=== PATIENT | female | born 1995 | race Caucasian/White ===

== ENCOUNTER → 2017-11-10 17:21 | Outpatient (CLI) | payer OTHER, SELFPAY ==
[2017-11-10 18:56] LABS: Free T3, Triiodothyronine Free 2.71 pg/mL (2.77-5.27); Free T4, Direct Thyroxine 0.57 ng/dL (0.78-2.19)
== END ==
PROVIDERS: PCP Family Medicine; Visit Provider Family Medicine
DX: E89.0 Postprocedural hypothyroidism (principal); Z86.19 Personal history of other infectious and parasitic diseases
CPT/HCPCS: 36415; 84439; 84443; 84481

== ENCOUNTER → 2017-11-20 15:42 | Outpatient (CLI) | payer OTHER, SELFPAY ==
[2017-11-20 16:36] LABS: Pregnancy Test Serum,Qual Negative (Negative)
== END ==
PROVIDERS: PCP Family Medicine; Visit Provider Family Medicine
DX: N92.6 Irregular menstruation, unspecified (principal)
CPT/HCPCS: 36415; 84703

== ENCOUNTER → 2017-11-24 07:33 | Outpatient (CLI) | payer OTHER, SELFPAY ==
[2017-11-24 08:39] LABS: Add Manual Diff / Slide Review NO; Basophils Percent Auto 0.8 % (0-2); Eosinophils Percent Auto 3.3 % (2-4); Hematocrit 35.8 % (36-46); Hemoglobin 12.3 g/dL (12.0-16.0); Lymphocytes Percent Auto 22.3 % (25-40); Mean Corpuscular HGB Conc 34.2 % (30-36); Mean Corpuscular Hemoglobin 28.3 PG (26-34); Mean Corpuscular Volume 82.9 fL (80-100); Monocytes Percent Auto 6.7 % (3-14); Neutrophils Absolute Auto 5800 /uL (3000-5900); Neutrophils Percent Auto 66.9 % (50-75); Platelet Count 254 X10^3/uL (150-400); Red Blood Cell Count 4.33 X10^6/uL (4.0-5.2); Red Cell Distribution Width 14.3 % (11.6-14.8); White Blood Cell Count 8.7 X10^3/uL (4.5-11.0)
[2017-11-24 08:53] LABS: Alanine Aminotransferase 28 IU/L (9-52); Albumin 4.3 g/dL (3.5-5.0); Albumin Globulin Ratio 1.5 (1.0-2.8); Alkaline Phosphatase 65 U/L (38-126); Aspartate Aminotransferase 22 IU/L (14-36); BUN Creatinine Ratio 17.1 (6-22); Bilirubin Total 0.6 mg/dL (0.2-1.3); Blood Urea Nitrogen 12 mg/dL (7-17); Calcium 9.6 mg/dL (8.4-10.2); Carbon Dioxide 28 mmol/L (22-32); Chloride 99 mmol/L (98-107); Cholesterol 149 mg/dL (140-199); Estimated Glomerular Filt Rate > 60.0 mL/min (>60); Globulin 2.8 g/dL (1.7-4.1); Glucose 91 mg/dL (70-100); HDL Cholesterol 46 mg/dL (40-60); HEMOLYSIS < 15 (0-50); LDL Cholesterol Calculated 82 mg/dL (<100); Potassium 4.1 mmol/L (3.4-5.1); Sodium 139 mmol/L (137-145); Total Protein 7.1 g/dL (6.3-8.2); Triglycerides 103 mg/dL (35-150)
[2017-11-24 08:55] LABS: Hemoglobin A1C% w Est Avg Glu 5.5 % (4.0-6.0)
[2017-11-24 09:17] LABS: Cortisol AM (Before 10AM) 9.12 ug/dL (4.46-22.7)
== END ==
PROVIDERS: PCP Family Medicine; Visit Provider Family Medicine
DX: M25.50 Pain in unspecified joint (principal); R63.5 Abnormal weight gain; E66.9 Obesity, unspecified; R14.0 Abdominal distension (gaseous)
CPT/HCPCS: 36415; 80053; 80061; 82533; 83036; 83516; 85025; 86140

== ENCOUNTER → 2018-01-28 13:24 | Outpatient (CLI) | payer OTHER, SELFPAY ==
[2018-01-28 14:48] LABS: Free T3, Triiodothyronine Free 2.33 pg/mL (2.77-5.27); Free T4, Direct Thyroxine 0.67 ng/dL (0.78-2.19)
== END ==
PROVIDERS: PCP Family Medicine; Visit Provider Family Medicine
DX: E89.0 Postprocedural hypothyroidism (principal)
CPT/HCPCS: 36415; 84439; 84443; 84481

== ENCOUNTER → 2018-04-05 15:39 | Outpatient (CLI) | payer OTHER, SELFPAY ==
[2018-04-05 16:16] LABS: Influenza A and B by PCR Rapid Negative (Negative)
== END ==
PROVIDERS: PCP Family Medicine; Visit Provider Internal Medicine
DX: R50.9 Fever, unspecified (principal)
CPT/HCPCS: 87400

== ENCOUNTER → 2018-04-19 11:00 | Outpatient (CLI) | payer OTHER, SELFPAY | PROVIDERS: PCP Family Medicine | DX: Z23 Encounter for immunization (principal) | CPT/HCPCS: 90471; 90686 ==

== ENCOUNTER → 2018-05-17 14:00 | Outpatient (CLI) | payer OTHER, SELFPAY ==
[2018-05-17 15:05] LABS: HCG Quantitative /Beta subunit < 2.39 mIU/mL
== END ==
PROVIDERS: PCP Family Medicine
DX: N91.2 Amenorrhea, unspecified (principal)
CPT/HCPCS: 36415; 84702

== ENCOUNTER → 2018-10-01 07:48 | Outpatient (CLI) | payer OTHER, SELFPAY ==
[2018-10-01 09:04] LABS: Add Manual Diff / Slide Review NO; Basophils Absolute Auto 100 /uL (0-100); Basophils Percent Auto 1.1 % (0-2); Eosinophils Absolute Auto 300 /uL (0-450); Eosinophils Percent Auto 3.2 % (2-4); Hematocrit 34.5 % (36-46); Hemoglobin 11.6 g/dL (12.0-16.0); Lymphocytes Absolute Auto 2000 /uL (1100-4500); Lymphocytes Percent Auto 21.6 % (25-40); Mean Corpuscular HGB Conc 33.6 % (30-36); Mean Corpuscular Volume 86.5 fL (80-100); Monocytes Absolute Auto 400 /uL (0-900); Monocytes Percent Auto 4.2 % (3-14); Neutrophils Absolute Auto 6500 /uL (1500-7000); Neutrophils Percent Auto 69.9 % (50-75); Platelet Count 267 X10^3/uL (150-400); Red Blood Cell Count 3.99 X10^6/uL (4.0-5.2); Red Cell Distribution Width 14.9 % (11.6-14.8); White Blood Cell Count 9.3 X10^3/uL (4.5-11.0)
[2018-10-01 09:20] LABS: Alanine Aminotransferase 21 IU/L (9-52); Albumin 4.4 g/dL (3.5-5.0); Albumin Globulin Ratio 1.4 (1.0-2.8); Alkaline Phosphatase 74 U/L (38-126); Aspartate Aminotransferase 23 IU/L (14-36); BUN Creatinine Ratio 14.4 (6-22); Bilirubin Total 0.3 mg/dL (0.2-1.3); Blood Urea Nitrogen 13 mg/dL (7-17); Calcium 9.2 mg/dL (8.4-10.2); Carbon Dioxide 26 mmol/L (22-32); Chloride 102 mmol/L (98-107); Estimated Glomerular Filt Rate > 60.0 mL/min (>60); Globulin 3.1 g/dL (1.7-4.1); Glucose 90 mg/dL (70-100); HEMOLYSIS < 15 (0-50); Potassium 4.1 mmol/L (3.4-5.1); Sodium 138 mmol/L (137-145); Total Protein 7.5 g/dL (6.3-8.2)
[2018-10-01 09:49] LABS: Ferritin 12.5 ng/mL (6.27-137)
[2018-10-01 10:13] LABS: HEMOLYSIS < 15 (0-50); Iron 59 ug/dL (37-170)
[2018-10-01 10:25] LABS: Percent Iron Saturation 16 % (15-50); Total Iron Binding Capacity 368 ug/dL (265-497); Transferrin 273 mg/dL (206-381)
[2018-10-01 10:29] LABS: Vitamin D 25 Hydroxy (D3) 26.7 ng/mL (30.0-100.0)
[2018-10-01 10:31] LABS: Free T4, Direct Thyroxine 0.24 ng/dL (0.78-2.19)
[2018-10-05 12:50] LABS: Triiodothyronine T3 Reverse 7 ng/dL (8-25)
[2018-10-05 15:30] LABS: Thyroid Peroxidase Antibodies < 1 IU/mL (< 9)
[2018-10-05 15:46] LABS: Dehydroepiandrosterone Sulfate 117 mcg/dL (18-391); Insulin Level Total 6.7 uIU/mL (2.0-19.6)
[2018-10-06 11:51] LABS: Homocysteine 12.1 umol/L (< 10.4)
== END ==
PROVIDERS: PCP Family Medicine; Visit Provider Family Medicine
DX: E89.0 Postprocedural hypothyroidism (principal); R63.5 Abnormal weight gain; E66.9 Obesity, unspecified; N92.0 Excessive and frequent menstruation with regular cycle; Z77.011 Contact with and (suspected) exposure to lead
CPT/HCPCS: 36415; 80053; 82306; 82627; 82728; 83090; 83525; 83540; 83550; 83655; 84439; 84443; 84481; 84482; 85025; 86376

== ENCOUNTER → 2019-04-20 13:20 | Outpatient (CLI) | payer OTHER, SELFPAY ==
[2019-04-20 14:05] LABS: Add Manual Diff / Slide Review NO; Basophils Absolute Auto 200 /uL (0-100); Basophils Percent Auto 2.3 % (0-2); Eosinophils Absolute Auto 200 /uL (0-450); Eosinophils Percent Auto 2.3 % (2-4); Hematocrit 34.6 % (36-46); Hemoglobin 11.6 g/dL (12.0-16.0); Lymphocytes Absolute Auto 1900 /uL (1100-4500); Mean Corpuscular HGB Conc 33.6 % (30-36); Mean Corpuscular Hemoglobin 28.8 PG (26-34); Mean Corpuscular Volume 85.7 fL (80-100); Monocytes Absolute Auto 300 /uL (0-900); Monocytes Percent Auto 3.1 % (3-14); Neutrophils Absolute Auto 7200 /uL (1500-7000); Neutrophils Percent Auto 73.3 % (50-75); Platelet Count 266 X10^3/uL (150-400); Red Blood Cell Count 4.04 X10^6/uL (4.0-5.2); Red Cell Distribution Width 15.2 % (11.6-14.8); White Blood Cell Count 9.8 X10^3/uL (4.5-11.0)
[2019-04-20 14:34] LABS: HEMOLYSIS < 15 (0-50); Iron 44 ug/dL (37-170)
[2019-04-20 14:35] LABS: Alanine Aminotransferase 23 IU/L (9-52); Albumin 4.7 g/dL (3.5-5.0); Albumin Globulin Ratio 1.7 (1.0-2.8); Alkaline Phosphatase 92 U/L (38-126); Aspartate Aminotransferase 22 IU/L (14-36); BUN Creatinine Ratio 15.7 (6-22); Bilirubin Total 0.4 mg/dL (0.2-1.3); Blood Urea Nitrogen 11 mg/dL (7-17); Calcium 9.4 mg/dL (8.4-10.2); Carbon Dioxide 26 mmol/L (22-32); Chloride 102 mmol/L (98-107); Cholesterol 172 mg/dL (140-199); Estimated Glomerular Filt Rate > 60.0 mL/min (>60); Globulin 2.7 g/dL (1.7-4.1); Glucose 90 mg/dL (70-100); HDL Cholesterol 36 mg/dL (40-60); HEMOLYSIS < 15 (0-50); LDL Cholesterol Calculated 101 mg/dL (<100); Potassium 4.1 mmol/L (3.4-5.1); Sodium 138 mmol/L (137-145); Total Protein 7.4 g/dL (6.3-8.2); Triglycerides 177 mg/dL (35-150)
[2019-04-20 14:44] LABS: Percent Iron Saturation 11 % (15-50); Total Iron Binding Capacity 385 ug/dL (265-497); Transferrin 307 mg/dL (206-381)
[2019-04-20 14:51] LABS: Free T3, Triiodothyronine Free 2.04 pg/mL (2.77-5.27); Free T4, Direct Thyroxine 0.49 ng/dL (0.78-2.19)
[2019-04-20 15:09] LABS: Ferritin 12.5 ng/mL (6.27-137)
== END ==
PROVIDERS: PCP Family Medicine; Visit Provider Family Medicine
DX: D50.9 Iron deficiency anemia, unspecified (principal); E89.0 Postprocedural hypothyroidism; E66.9 Obesity, unspecified
CPT/HCPCS: 36415; 80053; 80061; 82728; 83540; 83550; 84439; 84443; 84481; 85025

== ENCOUNTER → 2019-06-01 13:08 | Outpatient (CLI) | payer OTHER, SELFPAY ==
[2019-06-01 14:37] LABS: HCG Quantitative /Beta subunit < 2.39 mIU/mL
== END ==
PROVIDERS: PCP Specialist; Visit Provider Specialist
DX: N91.2 Amenorrhea, unspecified (principal)
CPT/HCPCS: 36415; 84702

== ENCOUNTER 2019-06-10 06:27 | Day surgery (SDC) | payer OTHER, SELFPAY ==
[2019-06-08 14:12] VITALS: BMI 44.2
[2019-06-10] VITALS (9 sets, daily range): BP systolic 110–147; BP diastolic 57–81; PULSE 65–81; RESP 12–17; TEMP 36.2–37.2; O2SAT 96–100; BMI 44.0
[2019-06-10] MEDS: LACTATED RINGERS 1,000 ML 100 ML IV (07:16)
--- NOTE | 2019-06-10 07:42 | PM.PREOP ---
Pre-operative Note Interval Note History & Physical reviewed/Exam performed by Physician: Yes Changes to H&P: No
--- NOTE | 2019-06-10 07:42 | PM.OP.1 ---
Operative Date/Time/Diagnoses Date of procedure: 06/10/19 Time of procedure: 07:42 Pre-op diagnosis: Right plantar fasciitis Post-op diagnosis: same Procedure & Clinicians Procedure: Right endoscopic plantar fascial release Same procedure as scheduled: Yes Indications: Painful right foot plantar fasciitis. Conservative measures failed to alleviate the pain and the desire was to have surgery at this time. We spoke of the risks, potential complications, alternatives, as well as expected outcomes. Consent was signed, no contraindications to the procedure at this time. Surgeon: Vijaya Howard Click Yes if Unassisted: Yes Anesthesia Type: General Operative Notes Closure Type: primary Specimen(s): none sent Estimated Blood Loss (mL): 3 Blood products transfused: none Tourniquet time (min): 24 Procedure in detail: The patient was brought to the operating room and placed on the operating table in supine position. Following induction of general anesthesia, local anesthesia was attained the right patient's heel. It was then prepped and draped in usual aseptic manner. After verification of anesthesia the tourniquet was inflated to the ankle. An incision was made over the medial heel just distal to the medial calcaneal tubercle. After blunt dissection to the origin point of the medial fascial band, a fascial elevator was used to gently remove some of the fat from the fascial band. Once more fully isolated, the trochar and obturator were placed in the incision from medial to lateral. An incision was made laterally to allow it's exit. The canal was cleaned using cotton tipped applicators to allow better visualization. The arthroscope was inserted laterally and a probe medially. Pictures were taken of the fascia then the probe was replaced with a blade. While dorsiflexing the forefoot, approximately half of the plantar fascia was transected from the central to medial aspect. Underlying this was seen the muscle. I removed the trochar and gently replaced it slightly more plantar on the medial aspect as this allowed for the final medial portion of the band to be released. Pictures taken. System rotated plantarly to verify that all fibers of the plantar fascia on that side had been released. The area was irrigated with copious amounts of normal saline. The system was then removed. The skin was closed both incisions with 4-0 nylon. After the tourniquet was deflated, a prompt hyperemic response was seen to the foot. The incisions were dressed with a sterile lightly compressive dressing and a postsurgical boot. The patient was transferred to the PACU with vital signs stable and vascular status intact. Complications: none Post-operative Condition: stable Disposition: PACU Plan for aftercare: Following a period of postoperative monitoring, the patient will be discharged to home on written and oral postoperative instructions. She has a set of crutches and a scooter option if needed for her nonweightbearing status. She has been directed to partial weight-bearing on the surgical foot for approximately 10 days, then she is available to begin transition to weight-bearing as tolerated following that in the boot, then may transition into a supportive shoe. Her sutures are generally to be removed status post approximately 1-2 weeks, but this is at the discretion of the provider. She must wear her boot while sleeping or a night splint for her full 3 weeks following the day of surgery. She is seeing for her 1st postoperative visit 1 of our physician's assistants and suture removal will be at his discretion, and may be performed or delayed until her following week visit with myself.
[2019-06-10] MEDS: CEFAZOLIN 2 GM/100 ML FROZ.PIGGY IV (07:45)
--- NOTE | 2019-06-10 08:13 | SUR.OPER ---
Supine on padded OR bed, head on pillow, arms secured on padded arm boards at <90 degrees abduction, legs uncrossed, safety belt at waist, tape over blanket over lower left leg, bump under right thigh, right leg draped free
[2019-06-10] MEDS: BUPIVACAINE 0.5% (PF) VIAL 30 ML INJ (08:20)
[2019-06-10] MEDS: fentaNYL 100 MCG/2 ML INJ IV ×2 (09:01→09:12)
[2019-06-10] MEDS: CODEINE/ACETAMINOPHEN 30/300 TABLET 1 TAB PO (09:23)
--- NOTE | 2019-06-10 09:41 | SUR.PHASEI ---
Stable pacu stay, shakes resolved with bare hugger and pain controlled with fentanyl and tylenol #3.
--- NOTE | 2019-06-10 10:17 | SUR.PHASEII ---
Assisted patient to bathroom. Patient discharged with in stable condition. All belongings returned to patient.
== END 2019-06-10 10:15 | disposition home or self-care (01) ==
PROVIDERS: PCP Family Medicine; Visit Provider Podiatrist
PROC: (CPT 29893; principal; 2019-06-10 07:45)
DX: M72.2 Plantar fascial fibromatosis (principal); E03.9 Hypothyroidism, unspecified; E66.9 Obesity, unspecified; Z68.41 Body mass index [BMI] 40.0-44.9, adult
CPT/HCPCS: 29893; J0690; J1100; J2250; J2405; J2704; J3010

== ENCOUNTER → 2019-07-29 11:10 | Outpatient (CLI) | payer OTHER, SELFPAY ==
[2019-07-29 13:25] LABS: Free T3, Triiodothyronine Free > 22.80 pg/mL (2.77-5.27); Free T4, Direct Thyroxine 5.89 ng/dL (0.78-2.19)
[2019-07-29 13:35] LABS: HCG Quantitative /Beta subunit < 2.39 mIU/mL
[2019-07-29 13:38] LABS: Thyroid Stimulating Hormone 0.02 uIU/mL (0.47-4.68)
== END ==
PROVIDERS: PCP Family Medicine; Referring Provider Family Medicine; Visit Provider Family Medicine
DX: E89.0 Postprocedural hypothyroidism (principal); N92.6 Irregular menstruation, unspecified
CPT/HCPCS: 36415; 84439; 84443; 84481; 84702

== ENCOUNTER → 2019-08-23 06:51 | Outpatient (CLI) | payer OTHER, SELFPAY ==
--- NOTE | 2019-08-23 | DI.MRI.S_ITS ---
PROCEDURE: MR ANKLE RT WO CON INDICATIONS: Plantar fascial fibromatosis TECHNIQUE: Noncontrast sagittal T1 spin echo and T2 fast spin echo with fat saturation, axial proton density fast spin echo and T2 fast spin echo with fat saturation, coronal T1 spin echo and T2 fast spin echo with fat saturation through the ankle/hindfoot. COMPARISON: [facility] [place], [place], XR FOOT 3+ VIEWS RIGHT, 05/04/2019, 11:28. FINDINGS: Image quality: Diagnostic. Bones and joints: No acute fracture, dislocation, or suspicious osseous lesion is identified involving the osseous structures of the midfoot or hindfoot. The ankle mortise alignment is anatomic. No osteochondral defects are present involving the tibial plafond toward the talar dome. There appear to be mild degenerative changes involving the middle and posterior subtalar joints. Mild degenerative cystic changes are noted involving the anterior process of the calcaneus near the sinus tarsi. There may be early degenerative changes of the calcaneocuboid joint. No significant joint effusions are identified. Medial structures: The deltoid and spring ligaments are intact. The tibialis posterior, flexor digitorum longus, and flexor hallucis longus tendons are intact and within normal limits. A small amount of fluid is contained within the tibialis posterior tendon sheath. There is mild subcutaneous edema about the medial aspect of the ankle. Incidental note is made of an flexor digitorum accessorius longus muscle, which is an anatomic variant. The posterior tibial nerve to the region of the tarsal tunnel appears to be within normal limits. Lateral structures: The anterior and posterior distal tibiofibular ligaments are intact. The anterior posterior talofibular ligaments are intact. The calcaneofibular ligament also appears to be intact. The peroneus brevis and peroneus longus tendons are intact. There is mild flattening involving the peroneus brevis tendon along the posterior margin of the lateral malleolus with slight increased signal involving the tendon just below the tip of the lateral malleolus. There is mild thickening and increased signal involving the peroneus longus tendon beyond the tip of the lateral malleolus. No significant tearing is present. A small amount of fluid is contained within their corresponding tendon sheaths. There is mild peritendinous edema. There is slight increased signal evident within the region of the sinus tarsi. Anterior structures: The tibialis anterior, extensor hallucis longus, and extensor digitorum longus tendons appear intact. However, there is slight increased signal identified involving the distal aspect of the tibialis anterior tendon near its insertion. Posterior and plantar structures: Achilles tendon is intact. Focal thickening involving the midportion of the medial band of the plantar fascia is present measuring up to 5 mm and demonstrating diffuse increased signal at this location with mild edema identified within the adjacent soft tissues. No complete tear is identified. IMPRESSION: 1. Thickening and abnormal signal involving the medial band of the plantar fascia may represent fasciitis versus plantar fibromatosis. Please correlate clinically. 2. Mild peroneus brevis and peroneus longus tendinopathy. 3. Mild tenosynovitis involving the tibialis posterior. 4. Mild distal anterior tibialis tendinopathy. 5. Mild degenerative changes of the hindfoot joints, as described. 6. Nonspecific increased signal within the sinus tarsi. Please correlate clinically to exclude sinus tarsi syndrome. Dictated by: Jalen Calderon M.D. on 08/23/2019 at 8:46 Approved by: Jalen Calderon M.D. on 08/23/2019 at 8:53
== END ==
PROVIDERS: PCP Family Medicine; Referring Provider Podiatrist; Visit Provider Podiatrist
DX: M72.2 Plantar fascial fibromatosis (principal); M65.871 Other synovitis and tenosynovitis, right ankle and foot
CPT/HCPCS: 73721

== ENCOUNTER → 2023-10-06 07:18 | Outpatient (CLI) | payer OTHER, SELFPAY ==
[2023-10-06 07:56] LABS: Add Manual Diff / Slide Review NO; Basophils Absolute Auto 100 /uL (0-100); Basophils Percent Auto 0.7 % (0-2); Eosinophils Absolute Auto 300 /uL (0-450); Eosinophils Percent Auto 2.6 % (2-4); Hematocrit 28.5 % (36-46); Hemoglobin 9.3 g/dL (12.0-16.0); Lymphocytes Absolute Auto 1900 /uL (1100-4500); Lymphocytes Percent Auto 18.4 % (25-40); Mean Corpuscular HGB Conc 32.7 % (30-36); Mean Corpuscular Hemoglobin 24.4 PG (26-34); Mean Corpuscular Volume 74.7 fL (80-100); Monocytes Absolute Auto 500 /uL (0-900); Monocytes Percent Auto 4.7 % (3-14); Neutrophils Absolute Auto 7700 /uL (1500-7000); Neutrophils Percent Auto 73.6 % (50-75); Platelet Count 360 X10^3/uL (150-400); Red Blood Cell Count 3.82 X10^6/uL (4.0-5.2); Red Cell Distribution Width 18.7 % (11.6-14.8); White Blood Cell Count 10.4 X10^3/uL (4.5-11.0)
[2023-10-06 08:31] LABS: Free T3, Triiodothyronine Free 2.58 pg/mL (2.77-5.27); Free T4, Direct Thyroxine 0.78 ng/dL (0.78-2.19)
[2023-10-06 08:44] LABS: Thyroid Stimulating Hormone 30.9 uIU/mL (0.47-4.68)
== END ==
PROVIDERS: Referring Provider Specialist; Visit Provider Specialist
DX: Z01.818 Encounter for other preprocedural examination (principal); E06.3 Autoimmune thyroiditis; N92.1 Excessive and frequent menstruation with irregular cycle; N80.03 Adenomyosis of the uterus
CPT/HCPCS: 36415; 84439; 84443; 84481; 85025

== ENCOUNTER 2023-10-12 06:41 | Day surgery (SDC) | payer OTHER, SELFPAY ==
[2023-10-05 12:14] VITALS: BMI 50.5
[2023-10-12] VITALS (19 sets, daily range): BP systolic 93–151; BP diastolic 41–75; PULSE 63–80; RESP 11–19; TEMP 36.3–37.2; O2SAT 93–100; BMI 49.4
--- NOTE | 2023-10-12 | PATH_ITS ---
[facility] Accession Number: [id number] No. of containers..01 Tissue . 01 Material submitted: . uterus - UTERUS, BILATERAL FALLOPIAN TUBES . 01 Diagnosis: UTERUS AND LEFT AND RIGHT FALLOPIAN TUBES, SUPRACERVICAL HYSTERECTOMY AND BILATERAL SALPINGECTOMY: Endometrium: Disordered proliferative with focal breakdown. Myometrium: No significant pathologic abnormalities. Serosa: No significant pathologic abnormalities. Fallopian tubes: Benign paratubal cysts, bilateral, and rare focus of endometriosis. [facility] 10/16/2023 1659 Local . 01 Electronically signed: . Olivia Hills MD, Pathologist NPI- [id number] . 01 Gross description: . Received in formalin with two identifiers and uterus and bilateral fallopian tubes, is a fragmented uterus (72 grams, 11.2 x 5.6 x 3.5 cm in aggregate), with two detached, unoriented, fimbriated fallopian tubes (4.9 x 0.9 cm and 5.7 x 0.6 cm), with no cervix or additional adnexa identified. . The serosa is quinn and wrinkled with several small dusky areas measuring up to 0.7 cm in greatest dimension. The endometrium is quinn and velvety and averages 0.1 cm. The myometrium is quinn and trabecular with no nodules or lesions identified. . The longer tube has violaceous serosa with adherent areas of hemorrhagic material and a cyst measuring up to 1.6 cm in greatest dimension filled with quinn serous fluid. The lumen is stellate and unremarkable. The shorter tube has quinn smooth serosa with a hemorrhagic area measuring 0.4 cm in greatest dimension and a cyst measuring 1.0 cm in greatest dimension filled with quinn serous fluid. The lumen is stellate and unremarkable. . [employer] sections are submitted as follows: A1: Endometrium. A2: Trabecular myometrium. A3: Serosa with hemorrhagic areas. A4: Longer fallopian tube to include one-half of bisected fimbriae and corss-sections. A5: Marcellus fallopian tube to include one-half of bisected fimbriae and cross-sections. ([id number]) /MUNIR 10/16/2023 1706 Local . 01 Pathologist provided ICD-10: N92.0, N80.01 . 01 CPT . 568702 Performed at: 01 [facility] [address] [place] [address], [place], [place] [id number] MD Rob Isaacs MD Phone: [phone]
[2023-10-12] MEDS: LACTATED RINGERS 1,000 ML 21 ML IV ×2 (07:27→10:22)
[2023-10-12] MEDS: ACETAMINOPHEN IV 1,000 MG/100 ML VIAL 400 MG IV (07:27)
--- NOTE | 2023-10-12 07:27 | PM.PREOP ---
Pre-operative Note Interval Note History & Physical reviewed/Exam performed by Physician: Yes Changes to H&P: No
[2023-10-12] MEDS: SCOPOLAMINE 1 PATCH TOP (07:28)
[2023-10-12] MEDS: CEFAZOLIN VIAL 3 GM in SODIUM CHLORIDE 0.9% 100 ML IV (07:55)
--- NOTE | 2023-10-12 08:14 | SUR.OPER ---
Lithotomy on padded OR bed. Switzer Pad Positioner under torso. Head on pillow, arms padded and tucked at sides. Legs secured in padded yellow fins stirrups.
[2023-10-12] MEDS: BUPIVACAINE 0.5% (PF) 30 ML, EPINEPHrine 0.15 MG INJ (08:25)
--- NOTE | 2023-10-12 09:58 | P.OP_ITS ---
Operative Date/Time/Diagnoses Date of procedure: 10/12/23 Time of procedure: 09:59 Pre-op diagnosis: Menorrhagia, history endometriosis on laparoscopy Post-op diagnosis: same (No endometriosis found) Procedure & Clinicians Procedure: Laparoscopic supracervical hysterectomy with bilateral salpingectomies Same procedure as scheduled: Yes Surgeon: Domonique Maxwell Chief Investment Officer: Faiza Suarez Click Yes if Unassisted: No Anesthesia Type: General Operative Notes Findings: Normal exam under anesthesia. Normal liver edge. Normal appearing uterus, tubes, ovaries. No active endometriosis seen. Closure Type: primary Specimen(s): other (Bilateral fallopian tubes and uterus not including the cervix) Applied: catheter (Clark catheter removed at the end of the case) Estimated Blood Loss (mL): 20 Blood products transfused: none Procedure in detail: Patient is brought to the operating room where she underwent general anesthesia and placed in low [facility] stirrups. She was prepped and draped in the usual sterile fashion. A check list was reviewed with the staff in the room prior to beginning of the case. Patient had pulsatile stockings in place and functional. 3 g of Ancef were in prior to beginning of the case.. A Clark catheter was placed. A single-tooth tenaculum was placed on the anterior lip of the cervix and the cervix dilated to a #6 Hegar dilator. The uterine manipulator was placed through the cervix into the uterus with the balloon inflated with 3 mL of air. The area of the umbilical incision and the 5 mm right and left lower quadrant incisions were injected with Marcaine with epinephrine. An incision was made with scalpel. The verries needle was placed into the abdomen and confirmed in the appropriate place with withdrawal on a syringe and then free flow of fluid down through the needle. The abdomen was insufflated with CO2. The needle was removed and a 5 mm trocar placed without difficulty. There did not appear to be any damage is placement of the trocar. The right and left lower quadrant incisions were made with the scalpel and the trochars placed without damage to internal structures. The power seal forceps were used to cauterize sequential bites were taken along the mesosalpinx followed by the round ligaments on both sides. The tubes were amputated and brought up through the port. During the sequence decision was made to place the suprapubic site to allow a another trocar to help expose the uterus. The skin was injected with Marcaine with epinephrine. An incision was made with the scalpel. The port was placed under direct visualization. Sequential bites were taken down the broad ligaments. The uterine arteries were cauterized. An incision was made above the level bladder pushing the bladder away from the cervix. The COMFORT loop was placed around the uterus and the uterus was amputated above the level of the bladder. The monopolar spatula was used to cauterize in the endocervical canal. A 15 mm Endo Catch bag was placed in the abdomen through the suprapubic port. The uterus was placed in the bag and brought up through the suprapubic port site. The Tirso O was placed. The uterus was hand morselized. The abdomen was reinsufflated and adequate hemostasis was noted. Ropivacaine was placed over the incision sites. The trochars were removed and the CO2 allowed escape from the abdomen. The fascia layer of the suprapubic site was repaired with 0 Polysorb suture. The subcuticular tissue was closed with interrupted 3-0 Vicryl sutures. The skin was closed with 4-0 Monocryl suture at the suprapubic site and the other 3 sites. The patient went to recovery room in good condition. Counts of instruments and sponges were correct. Dr. Suarez was present throughout the case to assist with holding the camera, retracting, cauterizing and cutting the structures on the left side of the patient, as well as assisting with morselization of the uterus. Complications: none Post-operative Condition: stable Disposition: observation (To acute care for monitoring postoperative for bleeding, ability to ambulate postoperative) Plan for aftercare: Home when awake and stable in a.m. on 10/13/2023
[2023-10-12] MEDS: ONDANSETRON 4 MG/2 ML INJ IV (10:01)
[2023-10-12] MEDS: HYDROMORPHONE 1 MG INJ IV ×3 (10:02→10:21)
[2023-10-12] MEDS: LORazepam 2 MG/ML INJ 0.25 MG IV (10:09)
--- NOTE | 2023-10-12 10:31 | SUR.PHASEI ---
Dr Maxwell to bedside. See order for oxycodone. Discussed with patient and MD regarding gluten and dairy allergy. Pt states she has taken this medication previously.
--- NOTE | 2023-10-12 11:08 | SUR.PHASEI ---
Pt transferred to room 218 in bed by this RN with glasses on and 1 belongings bag. SBAR report with bedside handoff to Eric HANKINS.
--- NOTE | 2023-10-12 11:23 | PC.NURSE ---
Patient arrived to room 218 approx 1105 from PACU. Oriented to room and call light. VSS. 4 lap sites to abdomen with dressings intact without drainage or bleeding noted. Felicity pad in place, without drainage noted at this time. Patient's now at bedside. Call light within reach. Continue to monitor.
[2023-10-12] MEDS: OXYCODONE IR 5 MG TABLET PO ×3 (11:40→21:39)
[2023-10-12] MEDS: ACETAMINOPHEN 325 MG TABLET 650 MG PO ×3 (11:40→23:27)
[2023-10-12] MEDS: LACTATED RINGERS 1,000 ML 100 ML IV ×2 (11:40→21:39)
[2023-10-12 12:26] LABS: Estimated Glomerular Filt Rate > 60 mL/min (>60)
[2023-10-12] MEDS: KETOROLAC 30 MG/ML VIAL IV ×2 (16:32→23:27)
[2023-10-12] MEDS: DOCUSATE 100 MG CAPSULE 200 MG PO (21:39)
[2023-10-13] MEDS: OXYCODONE IR 5 MG TABLET PO ×2 (02:53→09:16)
[2023-10-13 05:08] LABS: Add Manual Diff / Slide Review NO; Basophils Absolute Auto 0 /uL (0-100); Basophils Percent Auto 0.3 % (0-2); Eosinophils Absolute Auto 0 /uL (0-450); Lymphocytes Absolute Auto 1400 /uL (1100-4500); Lymphocytes Percent Auto 8.9 % (25-40); Mean Corpuscular Hemoglobin 24.8 PG (26-34); Mean Corpuscular Volume 77.5 fL (80-100); Monocytes Absolute Auto 800 /uL (0-900); Monocytes Percent Auto 5.3 % (3-14); Neutrophils Absolute Auto 13100 /uL (1500-7000); Neutrophils Percent Auto 85.5 % (50-75); Platelet Count 317 X10^3/uL (150-400); Red Blood Cell Count 3.22 X10^6/uL (4.0-5.2); Red Cell Distribution Width 19.7 % (11.6-14.8); White Blood Cell Count 15.3 X10^3/uL (4.5-11.0)
[2023-10-13] MEDS: ACETAMINOPHEN 325 MG TABLET 650 MG PO (05:48)
[2023-10-13] MEDS: KETOROLAC 30 MG/ML VIAL IV (05:48)
[2023-10-13] MEDS: LACTATED RINGERS 1,000 ML 100 ML IV (05:59)
[2023-10-13 08:00] VITALS: BP 107/62; PULSE 73; RESP 16; TEMP 36.9; O2SAT 100
--- NOTE | 2023-10-13 08:31 | P.DS_ITS ---
History of Present Illness History of Present Illness Date Patient Seen: 10/13/23 Time Patient Seen: 08:32 Chief complaint: [facility] for menorrhagia Narrative: Postoperative laparoscopic supracervical hysterectomy with bilateral salpingectomy for menorrhagia Discharge Providers Provider Discharge Date: 10/13/23 Discharge provider: Domonique Maxwell MD Summary Hospital Course Discharge Diagnosis: Menorrhagia with chronic blood-loss anemia Hospital Course: Patient underwent a laparoscopic supracervical hysterectomy with bilateral salpingectomy for menorrhagia with chronic blood-loss anemia and history of endometriosis Status at Discharge Cognitive/behavioral status at discharge: oriented Functional status at discharge: independent ambulation Overall status at discharge: patient is progressing back to baseline Time Spent with Patient Time spent: Less than 30 minutes Exam Vital Signs (past 8 hours): Blood pressure 102/54, pulse of 83 Oxygen Delivery Method Room Air Oxygen Flow Rate 0 Narrative Exam Narrative: Patient's abdomen is soft, nontender. Dressings are clean, dry, intact. Extremities with out edema and nontender Objective Labs 10/13/23 04:52 10/12/23 12:05 Labs: Laboratory Results - last 24 hr 10/12/23 10/13/23 12:05 04:52 WBC 15.3 H RBC 3.22 L Hgb 8.0 L Hct 25.0 L MCV 77.5 L MCH 24.8 L MCHC 32.0 RDW 19.7 H Plt Count 317 Neut % (Auto) 85.5 H Lymph % (Auto) 8.9 L [place] % (Auto) 5.3 Eos % (Auto) 0.0 L Baso % (Auto) 0.3 Neut # (Auto) 17258 H Lymph # (Auto) 1400 [place] # (Auto) 800 Eos # (Auto) 0 Baso # (Auto) 0 Creatinine 0.70 Estimated GFR > 60 PFSH Medical History (Updated 10/13/23 @ 08:30 by Domonique Maxwell MD) Endometriosis determined by laparoscopy Preoperative exam for gynecologic surgery Plantar warts (~2009) Depression (~2011) Anxiety (~2011) Restless leg syndrome (~2011) Foot pain (~2009) Ankle pain (~2000) Chicken pox (~1997) Infertility (~2016) Heavy menstrual period Endometriosis (~2015) Abnormal Pap smear of cervix (~2013) Hyperthyroidism (~2009) Colon polyps (~2009) GERD (gastroesophageal reflux disease) IBS (irritable bowel syndrome) (~2005) Graves disease (~2009) Hypothyroidism (~2009) Surgical History (Updated 10/12/23 @ 09:51 by Domonique Maxwell MD) History of orthopedic surgery (06/10/19) Anesthesia Surgical procedure planned Maynard teeth removed H/O laparoscopy (~2015) History of tonsillectomy (~2006) Family History Grandfather Heart disease Grandmother Hypertension Social History marital status: household members: spouse occupational status: employed ([employer]) Smoking Status: Never smoker alcohol intake: never substance use type: does not use Discharge Assessment & Plan Assessment and Plan Assessment: Postop day 1 laparoscopic supracervical hysterectomy with bilateral salpingectomy. Patient is stable with abdominal pain that is gradually improving. She is able to ambulate. She is having gas discomfort. Plan of Treatment: Will give a dose of IV iron prior to discharge for chronic anemia. Patient has a telehealth appointment in 2 weeks and a follow-up appointment in 6 weeks. Precautions to return for infection, pain under control or other concerns. Discharge Plan Discharge Plan Patient Disposition: Home Discharge orders & Medications Discharge Orders: Discharge (Order); Ordered 10/13/23 Ordered By: Domonique Maxwell Prescriptions: New ibuprofen 600 mg Tablet 600 mg PO Q6H Qty: 20 0RF oxycodone 5 mg Tablet 5 mg PO Q4HR PRN (Reason: Pain, Moderate (4-6)) Qty: 20 0RF Continued liothyronine 50 mcg tablet 100 mcg PO DAILY levothyroxine 250mcg/liothyrinine 50mcg 400 mcg PO QAM Follow up/Referrals: Domonique Maxwell MD [Physician] - (patient has a scheduled TH appt 10/27 and a 6 week post op appointment) Diet/Activity/Treatments Diet: Regular Activity: nothing in vagina for 1 week. No other restrictions Skin/Wound/Dressing Care Report to your healthcare provider any signs of infection, such as:: chills, fever, increased pain, unusual drainage and unusual redness Dressing: remove bandaids 10/12, leave steri strips in place for 1 week., can get wet just pat dry. remove after 1 week Visit Report/Discharge Packet Instructions: DI for Hysterectomy, DI for Laparoscopy Stand Alone Forms: Patient Portal/API, Surgery Discharge Discharge Data Attending Provider: Domonique Maxwell
[2023-10-13] MEDS: IRON SUCROSE 200 MG in SODIUM CHLORIDE 0.9% 100 ML 220 MG IV (09:15)
[2023-10-13] MEDS: DOCUSATE 100 MG CAPSULE 200 MG PO (09:15)
--- NOTE | 2023-10-13 12:25 | CM.DPNOTE ---
DCP Continued Pt is a 28yo female, resident of [place], presenting s/p [facility] for menorrhagia. Reviewed EMR and team rounds for pt?s medical status. Per RN, pt had no identified discharge needs and discharged home with spouse. Pt discharged before DCP was able to complete assessment. BAKARI Kamara
--- NOTE | 2023-10-13 16:09 | PC.NURSE ---
Discharge Note Patient A&O, VSS, RA, no complaints of pain/discomfort. Discharge packet reviewed with patient, all questions/concerns addressed. PIV discontinued. Patient able to dress self and pack all belongings. Patient taken down via wheelchair to POV.
== END 2023-10-13 11:20 | disposition home or self-care (01) ==
LOC: OR 06:41 → AC 06:42
PROVIDERS: Referring Provider Specialist; Visit Provider Specialist
PROC: 0UT94ZL Resection of Uterus, Supracervical, Percutaneous Endoscopic Approach (ICD-10-PCS; CPT 58542; principal; 2023-10-12 07:45)
DX: N92.0 Excessive and frequent menstruation with regular cycle (principal); N92.1 Excessive and frequent menstruation with irregular cycle; N83.8 Other noninflammatory disorders of ovary, fallopian tube and broad ligament; N80.203 Endometriosis of bilateral fallopian tubes, unspecified depth
CPT/HCPCS: 58542; 36415; 82565; 85025; 86850; 86900; 86901; J0136; J0171; J0690; J1100; J1170; J1756; J1885; J2060; J2250; J2405; J2704; J3010; J3490

== ENCOUNTER 2023-11-14 23:18 | Emergency (ER) | payer OTHER, SELFPAY ==
[2023-10-12 11:43] VITALS: BMI 49.4
[2023-11-14 23:30] VITALS: BP 139/84; PULSE 76; RESP 18; TEMP 36.9; O2SAT 100; BMI 47.8
--- NOTE | 2023-11-14 23:38 | DI.RAD.S_ITS ---
PROCEDURE: XR KNEE RT 3V INDICATIONS: pain after fall TECHNIQUE: 3 views of the knee were acquired. COMPARISON: None. FINDINGS: Bones: No fractures or dislocations. No suspicious bony lesions. Soft tissues: No joint effusion. No suspicious soft tissue calcifications. IMPRESSION: No acute bony abnormality or significant effusion. Approved by: Trevor Evans M.D. on 11/14/2023 at 23:42
--- NOTE | 2023-11-14 23:38 | DI.RAD.S_ITS ---
PROCEDURE: XR SHOULDER RT MIN 2V INDICATIONS: pain after fall TECHNIQUE: 2 views of the shoulder were acquired. COMPARISON: None. FINDINGS: Bones: No fractures or dislocations. No suspicious bony lesions. Visualized ribs appear intact. Soft tissues: No suspicious soft tissue calcifications. IMPRESSION: No acute bony abnormality. Approved by: Trevor Evans M.D. on 11/14/2023 at 23:41
--- NOTE | 2023-11-15 01:38 | ED_ITS ---
HPI - General Adult General Chief complaint: Extremity Injury, Upper Stated complaint: 5 weeks post op hysterectomy, fall, shoulder pain Time Seen by Provider: 11/15/23 00:56 Source: patient Mode of arrival: Ambulatory Limitations: no limitations History of Present Illness HPI narrative: 28-year-old female with history of hypothyroidism, patient did have hysterectomy 5 weeks ago. Patient was hiking around [facility] on some trails it was washed out she slipped and fell onto her right side landing on her shoulder side and leg. She states she did hit her head although no loss of consciousness no severe headaches no vertebral neck or back pain. Patient states no new abdominal pain. No chest pain or shortness of breath. She has had some discomfort in his shoulder which has worsened since this occurred at 8:30 a.m. in the evening, she felt like there was an occasional click but she can take it through full range of motion. No new numbness tingling or weakness. She also has some discomfort in her leg particularly her knee but has been able to weightbear. Has not appreciated significant bruising or skin changes. She does have some abrasions which are superficial on her calf. She states her tetanus is up-to-date. She states levothyroxine as her only home medication, no anticoagulants. She has had prior laparotomy and recent hysterectomy 5 weeks ago, patient has had prior ankle surgery on the right. Patient denies tobacco, regular alcohol or recreational drugs. She defers anything for pain. Related Data Home Medications Medication Instructions Recorded Confirmed liothyronine 50 mcg tablet 100 mcg PO DAILY 10/06/23 10/28/23 levothyroxine 250mcg/liothyrinine 400 mcg PO QAM 10/12/23 10/28/23 50mcg Previous Rx's Medication Instructions Recorded ibuprofen 600 mg tablet 600 mg PO Q6H #20 tabs 10/12/23 oxycodone 5 mg tablet 5 mg PO Q4HR PRN Pain, Moderate 10/12/23 (4-6) #20 tabs Allergies Allergy/AdvReac Type Severity Reaction Status Date / Time Milk Containing Products Allergy Severe Anaphylaxis Verified 10/28/23 15:48 (Dairy) [Milk Containing Products] gluten Allergy Mild Hives Uncoded 10/28/23 15:48 Review of Systems Review of Systems ROS Unobtainable: All systems reviewed & are unremarkable except as noted in HPI and below Patient History Medical History Endometriosis determined by laparoscopy Preoperative exam for gynecologic surgery Plantar warts (~2009) Depression (~2011) Anxiety (~2011) Restless leg syndrome (~2011) Foot pain (~2009) Ankle pain (~2000) Chicken pox (~1997) Infertility (~2016) Heavy menstrual period Endometriosis (~2015) Abnormal Pap smear of cervix (~2013) Hyperthyroidism (~2009) Colon polyps (~2009) GERD (gastroesophageal reflux disease) IBS (irritable bowel syndrome) (~2005) Graves disease (~2009) Hypothyroidism (~2009) Surgical History History of orthopedic surgery (06/10/19) Anesthesia Surgical procedure planned Carmel teeth removed H/O laparoscopy (~2015) History of tonsillectomy (~2006) Family History Grandfather Heart disease Grandmother Hypertension Social History marital status: household members: spouse occupational status: employed ([employer]) Smoking Status: Never smoker alcohol intake: never substance use type: does not use Smoking Status: Never smoker Substance Use Type: does not use Exam Narrative Exam Narrative: GEN: Patient appears in mild distress. HEAD: No evidence of trauma, no raccoon/Mcfadden sign. NECK: Nontender, painless range of motion, trachea midline Negative Nexus criteria, there has no midline line tenderness, distracting injury, altered mental status, neuro deficit, recent EtOH. EYES: PERRLA, EOMI ENT: External inspection normal, trachea is midline, Nares are clear, no septal hematoma, no dental or oral injury, airway is normal and with normal occlusion, No bony tenderness RESP: Chest is nontender and has symmetric movement, no ecchymosis, breath sounds are normal no crackles, wheezes or rales CVS: Heart sounds are normal, no murmur noted, No JVD. ABG/GI: Nontender, soft, normal bowel sounds, no distention, no organomegaly, pelvic rock is negative NEURO: Oriented AOx3, neuro is grossly intact, sensation and motor is normal all 4 extremities moving, cranial nerves II through XII are intact, GCS is 15 PSYCH: Normal mood and affect SKIN: Superficial abrasion right calf., warm and dry, no crepitus and without decubitus BACK: No CVA tenderness, no vertebral tenderness, no step-off's, no crepitus EXT: Atraumatic, patient has full range of motion of the right shoulder, no significant tenderness on exam, she does have some discomfort increased with i nternal rotation, tolerates external fairly well the weakness, coding educator are equal bilaterally. Patient has some mild tenderness over the patella and mild tenderness over the medial plateau the right. No other bony tenderness. Full range of motion. Are nontender, no pedal edema, normal color and temperature, normal range of motion of extremities with normal tendon exam, 2+ pulses in all four extremities Initial Vital Signs Initial Vital Signs: Vital Signs Temperature 98.5 F 11/14/23 23:30 Pulse Rate 76 11/14/23 23:30 Respiratory Rate 18 11/14/23 23:30 Blood Pressure 139/84 11/14/23 23:30 Pulse Oximetry 100 11/14/23 23:30 Oxygen Delivery Method Room Air 11/14/23 23:30 Course Orders Ordered: ED Orders 11/14/23 23:38 XR knee RT 3V Stat XR shoulder RT min 2V Stat Vital Signs Vital signs: Vital Signs - 8 hr 11/14/23 23:30 11/15/23 02:02 Temperature 98.5 F Pulse Rate 76 71 Respiratory Rate 18 16 Blood Pressure 139/84 115/74 Pulse Oximetry 100 97 Oxygen Delivery Method Room Air Room Air Medical Decision Making Imaging Data Extremity x-ray #1: Radiologist's Impression: Close Shoulder X-Ray (Signed) Trevor Evans - 11/14/23 Knee X-Ray (Signed) Trevor Evans - 11/14/23 Ankle MRI (Addendum) Jalen Calderon - 08/23/19 Launch?[address] [address] XRay Report Signed Patient: Tatiana Maldonado MR#: [id number] : 1995 Acct:[id number] Age/Sex: 28 / F Date of Service: 11/14/23 Loc: ED Accession Number: [id number] Procedure: XR shoulder RT min 2V Ordering Provider: Roselyn Valdez D.O. PROCEDURE: XR SHOULDER RT MIN 2V INDICATIONS: pain after fall TECHNIQUE: 2 views of the shoulder were acquired. COMPARISON: None. FINDINGS: Bones: No fractures or dislocations. No suspicious bony lesions. Visualized ribs appear intact. Soft tissues: No suspicious soft tissue calcifications. IMPRESSION: No acute bony abnormality. Approved by: Trevor Evans M.D. on 11/14/2023 at 23:41 Extremity x-ray #2: Radiologist's Impression: [address] [address] XRay Report Signed Patient: Tatiana Maldonado MR#: [id number] : 1995 Acct:[id number] Age/Sex: 28 / F Date of Service: 11/14/23 Loc: ED Accession Number: [id number] Procedure: XR knee RT 3V Ordering Provider: Roselyn Valdez D.O. PROCEDURE: XR KNEE RT 3V INDICATIONS: pain after fall TECHNIQUE: 3 views of the knee were acquired. COMPARISON: None. FINDINGS: Bones: No fractures or dislocations. No suspicious bony lesions. Soft tissues: No joint effusion. No suspicious soft tissue calcifications. IMPRESSION: No acute bony abnormality or significant effusion. Approved by: Trevor Evans M.D. on 11/14/2023 at 23:42 MDM Narrative Medical decision making narrative: This is a 28-year-old female who had a ground level fall onto her right side has some shoulder and leg discomfort particularly in the knee, x-ray imaging is negative, joint testing is overall appropriate. Plan for Tylenol/ibuprofen as needed and follow up in week to 10 days if no improvement in symptoms. Discharge Plan Departure Patient Disposition: Home Clinical Impression: Acute pain of right shoulder, Acute pain of right knee, Abrasion of calf Instructions: DI for Shoulder Pain Activity Restrictions/Additional Instructions: Primary care in the next 7 to 10 days if your symptoms are improving. You can take Tylenol up to a 1000 mg every 6 hours and/or ibuprofen up to 600 mg every 6 hours as needed. Use ice alternating with moist heat to the affected area. Please return for any significant changes or concerning symptoms, if you have new abdominal back or flank pain, any vomiting, black or bloody stools or other new or concerning changes. Prescriptions: No Action liothyronine 50 mcg tablet 100 mcg PO DAILY levothyroxine 250mcg/liothyrinine 50mcg 400 mcg PO QAM ibuprofen 600 mg Tablet 600 mg PO Q6H Qty: 20 0RF oxycodone 5 mg Tablet 5 mg PO Q4HR PRN (Reason: Pain, Moderate (4-6)) Qty: 20 0RF Referrals: Miscellaneous,Doctor, MD [Primary Care Provider] - Stand Alone Forms: Patient Portal/API
[2023-11-15 02:02] VITALS: BP 115/74; PULSE 71; RESP 16; O2SAT 97
== END 2023-11-15 02:19 | disposition home or self-care (01) ==
PROVIDERS: Emergency Provider Emergency Medicine
DX: S80.811A Abrasion, right lower leg, initial encounter (principal); M25.511 Pain in right shoulder; M25.561 Pain in right knee; W01.0XXA Fall on same level from slipping, tripping and stumbling without subsequent striking against object, initial encounter; Y93.01 Activity, walking, marching and hiking
CPT/HCPCS: 73030; 73562; 99281; 99283

== ENCOUNTER → 2023-11-23 15:05 | Outpatient (CLI) | payer OTHER, SELFPAY ==
[2023-10-12 11:43] VITALS: BMI 49.4
[2023-11-23 16:02] LABS: Add Manual Diff / Slide Review NO; Basophils Absolute Auto 100 /uL (0-100); Basophils Percent Auto 0.7 % (0-2); Eosinophils Absolute Auto 300 /uL (0-450); Eosinophils Percent Auto 2.4 % (2-4); Hematocrit 35.1 % (36-46); Hemoglobin 11.4 g/dL (12.0-16.0); Lymphocytes Absolute Auto 2100 /uL (1100-4500); Lymphocytes Percent Auto 17.4 % (25-40); Mean Corpuscular HGB Conc 32.6 % (30-36); Mean Corpuscular Hemoglobin 26.6 PG (26-34); Mean Corpuscular Volume 81.7 fL (80-100); Monocytes Absolute Auto 600 /uL (0-900); Neutrophils Absolute Auto 9100 /uL (1500-7000); Neutrophils Percent Auto 74.5 % (50-75); Platelet Count 327 X10^3/uL (150-400); Red Cell Distribution Width 20.3 % (11.6-14.8); White Blood Cell Count 12.2 X10^3/uL (4.5-11.0)
[2023-11-23 16:42] LABS: Iron 41 ug/dL (37-170)
[2023-11-23 17:00] LABS: Free T4, Direct Thyroxine 1.56 ng/dL (0.78-2.19)
[2023-11-23 17:14] LABS: Ferritin 15 ng/mL (6-137); Thyroid Stimulating Hormone 9.95 uIU/mL (0.47-4.68)
[2023-11-23 17:32] LABS: Anisocytosis 2+; Platelet Estimate Adequate on smear
== END ==
PROVIDERS: Referring Provider Obstetrics & Gynecology; Visit Provider Obstetrics & Gynecology
DX: D50.0 Iron deficiency anemia secondary to blood loss (chronic) (principal); N95.1 Menopausal and female climacteric states
CPT/HCPCS: 36415; 82728; 83540; 84439; 84443; 85025

== ENCOUNTER → 2023-12-07 14:22 | Outpatient (CLI) | payer OTHER, SELFPAY ==
[2023-10-12 11:43] VITALS: BMI 49.4
--- NOTE | 2023-12-07 14:24 | DI.RAD.S_ITS ---
PROCEDURE: XR FOOT RT MIN 3V INDICATIONS: Right foot pain TECHNIQUE: 3 views of the foot were acquired. COMPARISON: None. FINDINGS: Bones: No fractures or dislocations. No suspicious bony lesions. Soft tissues: No tibiotalar joint effusion. Achilles tendon appears normal. IMPRESSION: No acute osseous abnormality. If pain persists with conservative management, consider repeat x-ray in 10-14 days or cross-sectional imaging. Dictated by: Easton Ocampo M.D. on 12/07/2023 at 16:21 Approved by: Easton Ocampo M.D. on 12/07/2023 at 16:22
== END ==
PROVIDERS: PCP Family Medicine; Referring Provider Family Medicine; Visit Provider Family Medicine
DX: M79.671 Pain in right foot (principal)
CPT/HCPCS: 73630

== ENCOUNTER → 2023-12-22 08:57 | Outpatient (CLI) | payer OTHER, SELFPAY ==
[2023-10-12 11:43] VITALS: BMI 49.4
[2023-12-22 10:10] LABS: Add Manual Diff / Slide Review NO; Basophils Absolute Auto 100 /uL (0-100); Basophils Percent Auto 0.6 % (0-2); Eosinophils Absolute Auto 200 /uL (0-450); Eosinophils Percent Auto 2.2 % (2-4); Hematocrit 34.5 % (36-46); Hemoglobin 11.5 g/dL (12.0-16.0); Lymphocytes Absolute Auto 1700 /uL (1100-4500); Lymphocytes Percent Auto 15.8 % (25-40); Mean Corpuscular HGB Conc 33.3 % (30-36); Mean Corpuscular Hemoglobin 27.5 PG (26-34); Mean Corpuscular Volume 82.4 fL (80-100); Monocytes Absolute Auto 600 /uL (0-900); Monocytes Percent Auto 5.4 % (3-14); Neutrophils Absolute Auto 8000 /uL (1500-7000); Platelet Count 297 X10^3/uL (150-400); Red Blood Cell Count 4.19 X10^6/uL (4.0-5.2); Red Cell Distribution Width 17.5 % (11.6-14.8); White Blood Cell Count 10.5 X10^3/uL (4.5-11.0)
[2023-12-22 10:33] LABS: Alanine Aminotransferase 15 IU/L (<35); Albumin 4.2 g/dL (3.5-5.0); Albumin Globulin Ratio 1.4 (1.0-2.8); Alkaline Phosphatase 72 U/L (38-126); Aspartate Aminotransferase 19 IU/L (14-36); BUN Creatinine Ratio 17.8 (6-22); Bilirubin Total 0.4 mg/dL (0.2-1.3); Blood Urea Nitrogen 13 mg/dL (7-17); Calcium 9.2 mg/dL (8.4-10.2); Carbon Dioxide 28 mmol/L (22-32); Chloride 104 mmol/L (98-107); Estimated Glomerular Filt Rate > 60 mL/min (>60); Globulin 3.1 g/dL (1.7-4.1); Glucose 97 mg/dL (70-100); HEMOLYSIS < 15 (0-50); Potassium 4.6 mmol/L (3.4-5.1); Sodium 136 mmol/L (137-145); Total Protein 7.3 g/dL (6.3-8.2)
[2023-12-22 10:46] LABS: Free T3, Triiodothyronine Free 2.19 pg/mL (2.77-5.27)
[2023-12-22 11:29] LABS: Free T4, Direct Thyroxine 0.64 ng/dL (0.78-2.19)
[2023-12-23 07:36] LABS: Thyroid Peroxidase Antibodies 12 IU/mL (0-34)
[2023-12-23 19:08] LABS: Anti Thyroglobulin Antibody <1.0 IU/mL (0.0-0.9)
== END ==
PROVIDERS: PCP Family Medicine; Referring Provider Family Medicine; Visit Provider Family Medicine
DX: E06.3 Autoimmune thyroiditis (principal); D64.9 Anemia, unspecified; K76.0 Fatty (change of) liver, not elsewhere classified; E05.00 Thyrotoxicosis with diffuse goiter without thyrotoxic crisis or storm; Z80.0 Family history of malignant neoplasm of digestive organs
CPT/HCPCS: 36415; 80053; 84439; 84443; 84481; 85025; 86376; 86800

== ENCOUNTER → 2024-01-04 13:48 | Outpatient (CLI) | payer OTHER, SELFPAY ==
[2023-10-12 11:43] VITALS: BMI 49.4
== END ==
LOC: CAR 13:48
PROVIDERS: PCP Family Medicine; Referring Provider Family Medicine; Visit Provider Family Medicine
DX: R55 Syncope and collapse (principal)
CPT/HCPCS: 93246

== ENCOUNTER → 2024-01-12 07:22 | Outpatient (CLI) | payer OTHER, SELFPAY ==
[2023-10-12 11:43] VITALS: BMI 49.4
--- NOTE | 2024-01-12 07:23 | DI.US.S_ITS ---
PROCEDURE: US SOFT TISSUE HEAD AND NECK INDICATIONS: Swollen lymph nodes TECHNIQUE: Real-time scanning was performed of the neck region of interest, with image documentation. COMPARISON: None. FINDINGS: There is a 0.9 x 0.5 x 0.8 cm lymph node within the left parotid gland. There is a 0.9 x 0.9 x 1.1 cm lymph node within the left submandibular gland. There is a 1.8 x 0.7 x 1 cm. lymph node within the right parotid gland. IMPRESSION: 1. There is a mildly prominent lymph node within the right parotid gland and left submandibular gland. These are nonspecific in etiology and may be reactive. 2. There is a small lymph node within the left parotid gland that is not enlarged by size criteria. Dictated by: Robert Hernandez M.D. on 01/12/2024 at 16:56 Approved by: Robert Hernandez M.D. on 01/12/2024 at 17:01
== END ==
LOC: US 07:22
PROVIDERS: PCP Family Medicine; Referring Provider Family Medicine; Visit Provider Family Medicine
DX: R59.0 Localized enlarged lymph nodes
CPT/HCPCS: 76536

== ENCOUNTER → 2024-02-05 07:50 | Outpatient (CLI) | payer OTHER, SELFPAY ==
[2023-10-12 11:43] VITALS: BMI 49.4
--- NOTE | 2024-02-05 07:51 | DI.ECHO.S_ITS ---
[facility]---------+ [facility] : : [address] : : [place] : : [id number] : : Phone: [phone] Echocardiogram Report + + :Name: TYLER CORDOVA Study Date: 02/05/2024 Height: 63 in : :Hospital ReadingLocation: Weight: 250 lb : : Gender: Female BSA: 2.1 m2 : :: 1995 Age: 28 yrs BP: 124/72 mmHg: :Reason For Study: Syncope : :Ordering Physician: GENI, : :WILL Velazquez Performed By: Shagufta Sun : :Referring: WILL ARECHIGA R : + + Interpretation Summary Technically difficult study. The left ventricle is normal in size and wall thickness. The ejection fraction is estimated to be 50-55%. The right ventricle is normal size. The right ventricular systolic function is normal. No significant valvular pathology seen. The IVC is dilated (diameter is greater than 2.1 cm) and it collapses less than 50% with a sniff. This suggests a high right atrial pressure of 15 mm Hg. Procedure: A two-dimensional transthoracic echocardiogram with color flow and Doppler was performed. The study quality was technically difficult. There is no prior echocardiogram noted for this patient. The heart rate ranged between 65-67 bpm during the study. The patient was in normal sinus rhythm during the exam. Left Ventricle: The left ventricle is normal in size and wall thickness. The ejection fraction is estimated to be 50-55%. There are no obvious focal wall motion abnormalities noted but poor endocardial definition reduces the sensitivity for the detection of such. Diastolic parameters suggest probable normal left ventricular diastolic function and normal filling pressures. Right Ventricle: The right ventricle is normal size. The right ventricular systolic function is normal. Atria: The left atrial size is normal. Right atrial size is normal. The interatrial septum grossly appears intact with no obvious evidence for an atrial septal defect. Mitral Valve: The mitral valve is normal in structure and function. There is no mitral regurgitation noted. Aortic Valve: The aortic valve opens well. The aortic valve is grossly normal. The aortic valve is not well visualized. No aortic regurgitation is present. Tricuspid Valve: The tricuspid valve is not well visualized, but is grossly normal. No tricuspid regurgitation. Pulmonic Valve: The pulmonic valve is not well seen, but is grossly normal. There is no pulmonic valvular regurgitation. Great Vessels: The aortic root is normal size. The ascending aorta is normal in size. The aortic arch is normal in size. The IVC is dilated (diameter is greater than 2.1 cm) and it collapses less than 50% with a sniff. This suggests a high right atrial pressure of 15 mm Hg. Pericardium/ Pleura There is no pericardial effusion. There is no pleural effusion. MMode/2D Measurements & Calculations LVIDd: 5.3 cm LVOT diam: 2.3 cm LVIDs: 3.4 cm Ao root diam: 3.2 cm FS: 36.9 % asc Aorta Diam: 2.8 cm EPSS: 0.64 cm Ao Arch Diam (Prox Trans): 2.9 cm IVSd: 0.98 cm LVPWd: 0.83 cm LV allen. diameter/BSA (cm/m^2): 2.5 LV sys. diameter/BSA (cm/m^2): 1.6 LA A2 area: 15.9 cm2 RA long axis: 4.1 cm LA A4 area: 19.0 cm2 RA area: 13.1 cm2 LA length (vol): 5.7 cm RA vol: 35.5 ml LA vol: 44.8 ml RA : 16.7 ml/m2 LA vol index: 21.1 ml/m2 IVC diam: 2.3 cm RVD1 (basal): 2.6 cm TAPSE: 1.7 cm Doppler Measurements & Calculations Ao V2 max: 120.3 cm/sec LVOT Max Juancarlos: 87.8 cm/sec Ao V2 mean: 89.8 cm/sec LV V1 max P.1 mmHg Ao max P.8 mmHg LV V1 VTI: 20.8 cm Ao mean P.5 mmHg VENESSA(I,D): 2.8 cm2 Ao V2 VTI: 30.0 cm VENESSA(V,D): 2.9 cm2 sev ratio: 0.69 VENESSA indexed to BSA (cm^2/m^2): 1.3 MV E max juancarlos: 108.4 cm/sec PA V2 max: 94.7 cm/sec MV A max juancarlos: 54.3 cm/sec PA V2 mean: 65.0 cm/sec MV E/A: 2.0 PA mean P.9 mmHg Med Peak E' Juancarlos: 9.4 cm/sec PA pr(Accel): 5.4 mmHg E/E' med: 11.5 Lat Peak E' Juancarlos: 14.5 cm/sec E/E' lat: 7.5 E/e' average: 9.5 MV dec time: 0.21 sec SV(LVOT): 83.0 ml Reading Physician:05:44 PM
== END ==
LOC: ECHO 07:51
PROVIDERS: PCP Family Medicine; Referring Provider Family Medicine; Visit Provider Family Medicine
DX: R55 Syncope and collapse (principal)
CPT/HCPCS: 93306

== ENCOUNTER → 2024-03-07 10:34 | Outpatient (CLI) | payer OTHER, SELFPAY ==
[2023-10-12 11:43] VITALS: BMI 49.4
[2024-03-07 12:03] LABS: Follicle Stimulating Hormone 4.82 mIU/mL
[2024-03-07 12:19] LABS: Estradiol, Total 38.9 pg/mL
[2024-03-07 12:26] LABS: Free T3, Triiodothyronine Free 3.53 pg/mL (2.77-5.27); Free T4, Direct Thyroxine 1.32 ng/dL (0.78-2.19)
[2024-03-07 12:39] LABS: Thyroid Stimulating Hormone 1.54 uIU/mL (0.47-4.68)
[2024-03-09 07:36] LABS: Thyroid Peroxidase Antibodies <9 IU/mL (0-34)
== END ==
PROVIDERS: Family Provider Family Medicine; PCP Family Medicine; Referring Provider Obstetrics & Gynecology; Visit Provider Family Medicine
DX: E89.40 Asymptomatic postprocedural ovarian failure (principal); Z90.710 Acquired absence of both cervix and uterus; E03.9 Hypothyroidism, unspecified; R79.89 Other specified abnormal findings of blood chemistry
CPT/HCPCS: 36415; 82670; 83001; 84432; 84439; 84443; 84481; 86376

== ENCOUNTER → 2024-03-29 06:29 | Outpatient (CLI) | payer OTHER, SELFPAY ==
[2024-03-17 17:42] VITALS: BMI 49.4
--- NOTE | 2024-03-29 06:30 | DI.CT.S_ITS ---
PROCEDURE: CT ANGIO HEAD AND NECK INDICATIONS: dizzy, flushed with compression of cervical spine TECHNIQUE: After the administration of intravenous contrast, 1 mm thick sections acquired from the aortic arch through the [place]. 3-dimensional aocdyud-klhemptdr-unygtiujfw (MIP) and/or volume rendering reformats were acquired of the central intracranial vasculature and neck separately. For radiation dose reduction, the following was used: automated exposure control, adjustment of mA and/or kV according to patient size. COMPARISON: None. FINDINGS: Image quality: Diagnostic. BRAIN: CSF spaces: Ventricles are normal in size and shape. Basal cisterns are patent. No extra-axial fluid collections. Brain: No significant abnormality of the brain can be seen. Skull and face: Calvarium and facial bones appear intact, without suspicious lesions. Orbits appear normal. Sinuses: Sinuses and mastoids are clear. HEAD CT ANGIOGRAPHY: Anterior circulation: Intracranial internal carotid arteries are normal in size and flow. The flow within the paired anterior cerebral arteries is normal and symmetric. The flow within the middle cerebral arteries is normal and symmetric. The anterior communicating artery is seen. No aneurysms are seen. Posterior circulation: There is a right vertebral artery dominance. The left vertebral artery is hypoplastic compared to the right. It becomes markedly atretic extending from the left C1-2 foramina through the V4 segment. No priors. Visualized portions of the vertebral arteries demonstrate normal caliber, and join to form a normal appearing basilar artery. Flow within the posterior cerebral arteries is normal and symmetric. No aneurysms are seen. NECK CT ANGIOGRAPHY: Carotid system: The great vessels demonstrate a conventional anatomy as they arise from the aortic arch. The origins of the common carotid arteries appear patent. The common carotid arteries demonstrate normal caliber and courses. The bifurcation regions are both widely patent. The internal carotid arteries demonstrate normal calibers and courses. Posterior circulation: The origins of the vertebral arteries both appear widely patent. The more superior extracranial portions of both vertebral arteries also demonstrate normal courses and calibers. They join to form a normal appearing basilar artery. Soft tissues: Visualized neck soft tissues demonstrate no suspicious abnormalities. Bones: No suspicious bony lesions. Visualized cervical spine appears normally aligned. 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 However, if concern is present secondary to acute trauma, interval follow-up/MRA may be obtained. Any quantitative measurements of stenosis were performed using NASCET criteria. Dictated by: Shavon Whalen M.D. on 03/29/2024 at 10:57 Approved by: Shavon Whalen M.D. on 03/29/2024 at 11:13
== END ==
PROVIDERS: Family Provider Family Medicine; PCP Family Medicine; Referring Provider Family Medicine; Visit Provider Family Medicine
DX: R55 Syncope and collapse (principal); R42 Dizziness and giddiness; M79.603 Pain in arm, unspecified
CPT/HCPCS: 70496; 70498; Q9967

== ENCOUNTER 2024-05-12 08:15 | Outpatient (RCR) | payer OTHER, SELFPAY ==
[2023-10-12 11:43] VITALS: BMI 49.4
--- NOTE | 2024-03-17 16:02 | PT.OIE ---
Current Diagnoses Pain in right shoulder (03/17/24) Past Medical History (Last Updated 11/19/23 @ 17:56 by Lorna Brady) Abnormal Pap smear of cervix (~2013) ADHD Ankle pain (~2000) Anxiety (~2011) Chicken pox (~1997) Colon polyps (~2009) Depression (~2011) Endometriosis (~2015) Endometriosis determined by laparoscopy Foot pain (~2009) GERD (gastroesophageal reflux disease) Graves disease (~2009) Heavy menstrual period Hyperthyroidism (~2009) Hypothyroidism (~2009) IBS (irritable bowel syndrome) (~2005) Infertility (~2016) Ovarian cyst (~2017) PCOS (polycystic ovarian syndrome) (~2017) Plantar warts (~2009) Preoperative exam for gynecologic surgery PTSD (post-traumatic stress disorder) Restless leg syndrome (~2011) Past Surgical History (Last Updated 11/19/23 @ 17:56 by Lorna Brady) Anesthesia H/O laparoscopy (~2015) History of orthopedic surgery (06/10/19) History of tonsillectomy (~2006) Surgical procedure planned Tarsal tunnel syndrome (~2019) [place] teeth removed Visit Care Team Role Provider Type Katie Zepeda MD Attending Provider Physician Family Provider Primary Care Provider Referring Provider Specialty: Family Practice FINANCIAL MANAGEMENT CONSULTANT Address: [address] [place] [address], [facility] Email: [email or web address] Physical Therapy Initial Evaluation PT-OP-A Visit Information Start: 03/10/24 09:52 Freq: Status: Active Protocol: Document 03/17/24 13:02 [facility] (Rec: 03/17/24 16:02 [facility] [id number]) Out-Patient Physical Therapy Visit Information Visit Information Visit Type Initial Evaluation Visit Start Time 13:03 Visit Stop Time 13:48 Visit Number 1 Number of PACKING ROOM INSPECTOR Visits 0 PT-OP-B Current Condition Start: 03/10/24 09:52 Freq: Status: Active Protocol: Document 03/17/24 13:02 [facility] (Rec: 03/17/24 16:02 [facility] [id number]) Current Condition History of Current Condition Onset Date october and 2016 Current Complaints R shoulder and upper back pain History of Current Condition Pt reports R shoulder pain is from hiking accident where is was really slippery and fell this October. She also fell nto her shoulder hard. [place] was 5 weeks after hysterecotmy. 2 weeks later, alyssa passed out and fell on her shoulder again . Is doing work ups for POTs. Pain in her back is a constant thing since 2017. In 2017, had R a rhomdoid injury and went to chiro, massage and acupuncture which helped, but never went away. Was at a workout conference and feels like she may have overused it. since shoulder injury, it got worse. Has been doing some massage and does some stretching. Massage gvies relief in tspinebut then it comes back. Uses Tens unit on shoulder but doesn't notice much help from that. Has had chronic issues w/pelvic issues including bleeding so stopped working out. 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 HOping toget back to working out. Has thyroid issues also and is on meds. Has noted some TMJ issues. numbness and tinging in all fingers ant ( typing, when did lashes, did that, sometimes just sitting) and when wakes up has ant antebrachium numbness on L into digits 3-5, R digits 2,3, 5. 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 Prior Treatments and Tests head neck US: 1. There is a mildly prominent lymph node within the right parotid gland and left submandibular gland. These are nonspecific in etiology and may be reactive. 2. There is a small lymph node within the left parotid gland that is not enlarged by size criteria. juana xray: IMPRESSION: No acute bony abnormality. Treatment Goals Patient/Caregiver Goals improve self pain management, resume more activity ,do daily activity w/less pain PT-OP-C Subjective Start: 03/10/24 09:52 Freq: Status: Active Protocol: Document 03/17/24 13:02 [facility] (Rec: 03/17/24 16:02 [facility] [id number]) OP-PT Pain Assessment Location thoracic pain Pain Location Details R>L thoracic and into scaps, along w/UT and neck region Intensity 8 Scale Used constant: 5 worst:8 Frequency Constant Other Pain Aggravating Factors stress, sleep wrong,too much activity/on feet too long Pain Alleviating Factors Heat Other Pain Alleviating Factors TENs, stretching shoulder pain Pain Location Details ant lat Intensity 5 Scale Used Numeric (0 - 10) Description With Movement Frequency Intermittent Pain Duration sometimes will linger hours other times stops after the movement Pain Aggravating Factors ADL's,Lifting Other Pain Aggravating Factors reaching overhead, doing hair, washing back Other Pain Alleviating Factors stop painful activity, mm rub PT-OP-F Manual Assessment Start: 03/10/24 09:52 Freq: Status: Active Protocol: Document 03/17/24 13:02 [facility] (Rec: 03/17/24 16:02 [facility] [id number]) Manual Assessments Soft Tissue Assessment Soft Tissue Mobility Assessment significant B periscap tightness, UT, LS scalenes PT-OP-J Posture/Palpation/Skin Start: 03/10/24 09:52 Freq: Status: Active Protocol: Document 03/17/24 13:02 [facility] (Rec: 03/17/24 16:02 [facility] [id number]) Posture Evaluation [facility] Postural Classification System [facility] Postural Classifications Posterior/Posterior Vertical Compression Test 0 Elbow Flexion Test 0 Comments Posture Comments ant tip of B scap, R humerus more ant PT-OP-K Range of Motion Start: 03/10/24 09:52 Freq: Status: Active Protocol: Document 03/17/24 13:02 [facility] (Rec: 03/17/24 16:02 [facility] [id number]) Cervical Spine Range of Motion Cervical Spine Active Degrees Flexion 48 Extension 49 Rotation Left 68 Rotation Right 60 Lateral Flexion Left 45 Lateral Flexion Right 48 Comments 50% rot R: 40% L thoracic rot Shoulder Goniometric Range of Motion Shoulder Right Active Flexion 142 Extension 50 Abduction 142 External Rotation at 90 degrees 86 Abduction External Rotation at 0 degrees Abduction 59 Internal Rotation Behind Back (text) T7 Comments tight and some pain Left Active Flexion 157 Extension 50 Abduction 172 External Rotation at 90 degrees 93 Abduction External Rotation at 0 degrees Abduction 72 Internal Rotation Behind Back (text) T6 PT-OP-L Special Tests Start: 03/10/24 09:52 Freq: Status: Active Protocol: Document 03/17/24 13:02 [facility] (Rec: 03/17/24 16:02 [facility] [id number]) Special Tests Cervical Spine Special Tests Spurling's Test Test Results feels dizzy/hot after Vertebral Artery Test Results positional screening neg but did note some lightheaded feeling after screen Comments BP119/64; ausciltation wNL heart and carotid Neural Special Tests- Upper Body Radial Nerve Tension Comments positive R only Median Nerve Tension Comments positive B Ulnar Nerve Tension Comments positive R only PT-OP-M Strength Start: 03/10/24 09:52 Freq: Status: Active Protocol: Document 03/17/24 13:02 [facility] (Rec: 03/17/24 16:02 [facility] [id number]) Shoulder Strength Shoulder Manual Muscle Testing Left Flexion 4+ Good+ Extension 4+ Good+ Abduction (C5) 4+ Good+ External Rotation 4- Good- Internal Rotation 4- Good- Right Flexion 3+ Fair+ Extension 4 Good Abduction (C5) 3+ Fair+ External Rotation 3+ Fair+ Internal Rotation 4- Good- Comments pain PT-OP-Q Treatments Start: 03/10/24 09:52 Freq: Status: Active Protocol: Document 03/17/24 13:02 [facility] (Rec: 03/17/24 16:02 [facility] [id number]) Self-Care/Home Management Treatment Education Other Education 12 min: edu to pt on importance to follow up re: cardio referal. Discussed w/pt re: concerns for lightheadedness associated w/ neck testing today. edu re: findings indicate more likely a nerve issue. PT-OP-T Assessment and Plan Start: 03/10/24 09:52 Freq: Status: Active Protocol: Document 03/17/24 13:02 [facility] (Rec: 03/17/24 16:02 [facility] [id number]) Physical Therapy Assessment Rehab Potential Rehabilitation Potential Good Evaluation Complexity Number of Personal Factors/Comorbidities 3 or More Number of Body Systems Impaired 4 or More Clinical Presentation at Evaluation Unstable Impairments Impairments Activity Tolerance,Functional Activities,Functional Mobility ,Pain,Posture,ROM,Soft Tissue Mobility,Strength Other Concerns Barriers to Rehabilitation higher co pay Goals activity Short Term Goal (STG) Pt will be able to work at desk without inc tingling or pain STG Duration 04/22 Puppet Developer Goal (LTG) Pt will report able to increase to light exercise w/o inc pain in tspine or shoudler. LTG Duration 06/09 strength Short Term Goal (STG) Pt will be indep w/HEP STG Duration 04/22 Puppet Developer Goal (LTG) Pt will score atleast 4/5 on EFT and 5/5 on BUE mMT to show improved stability to allow greater ease w/daily activities. LTG Duration 06/02 Assessment Summary Assessment Pt presents w/R shoulder pain after 2 falls onto shoulder 4 months ago and chronic (mult year) hx of thoracic pain. She has inc pain in scap and R shoulder w/lifting activities, desk time and tends to work through her pain.S he has multiple comorbitiies and more follow up w/MDs being done on ECHO testing, GI issues and POTs, which could be related to some symptoms noted ( lightheadedness) w/testing today. Further testing needed to screen further of cervical spine to determine pt may require further medical testing or assessment from re: this issue. She does show restrictions in thoracic region though and weakenss in shoulder consistant w/neural tension found in testing today . Pt would benefit from skilled PT to imrpove her mobility and dec pain w/inc function. Physical Therapy Plan Frequency and Duration Frequency of Treatment 1-2x/wk Duration of treatment (weeks) 12 Plan of Care Start Date 03/17/24 Plan of Care End Date 06/09/24 Therapeutic Interventions Therapeutic Interventions Gait Training,Home Exercise Program,Joint Mobilizations, Manual Therapy,Neuromuscular Re-education,Orthotic/ Prosthetic Management,Patient/ Caregiver Education,Self-Care/ Home Management,Soft Tissue Mobilization,Taping, Therapeutic Activities, Therapeutic Exercises Modalities Cold Pack/Ice Massage,Electric Stimulation,Hot Packs, Infrared Therapy,Ultrasound Next Visit Focus/Plan Next Note Type Treatment Note Next Visit Plan avoid upper cervical, ligamentous screening, cranial n screen, reflex testing manual: focus pec, ribs and upper tspine and n paths down arm HEP: open book, paloff press, cat/cow, rows, shoulder ER & IR
--- NOTE | 2024-03-17 16:02 | PT.OPPOC ---
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, [address] Email: [email or web address] Plan Of Care PT-OP-B Current Condition Start: 03/10/24 09:52 Freq: Status: Active Protocol: Document 03/17/24 13:02 [facility] (Rec: 03/17/24 16:02 [facility] [id number]) Current Condition History of Current Condition Onset Date october and 2016 Current Complaints R shoulder and upper back pain History of Current Condition Pt reports R shoulder pain is from hiking accident where is was really slippery and fell this October. She also fell nto her shoulder hard. taht was 5 weeks after hysterecotmy. 2 weeks later, seh passed out and fell on her shoulder again . Is doing work ups for POTs. Pain in her back is a constant thing since 2017. In 2017, had R a rhomdoid injury and went to chiro, massage and acupuncture which helped, but never went away. Was at a workout conference and feels like she may have overused it. since shoulder injury, it got worse. Has been doing some massage and does some stretching. Massage gvies relief in tspinebut then it comes back. Uses Tens unit on shoulder but doesn't notice much help from that. Has had chronic issues w/pelvic issues including bleeding so stopped working out. 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 HOping toget back to working out. Has thyroid issues also and is on meds. Has noted some TMJ issues. numbness and tinging in all fingers ant ( typing, when did lashes, did that, sometimes just sitting) and when wakes up has ant antebrachium numbness on L into digits 3-5, R digits 2,3, 5. 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 Prior Treatments and Tests head neck US: 1. There is a mildly prominent lymph node within the right parotid gland and left submandibular gland. These are nonspecific in etiology and may be reactive. 2. There is a small lymph node within the left parotid gland that is not enlarged by size criteria. shoudler xray: IMPRESSION: No acute bony abnormality. Treatment Goals Patient/Caregiver Goals improve self pain management, resume more activity ,do daily activity w/less pain PT-OP-T Assessment and Plan Start: 03/10/24 09:52 Freq: Status: Active Protocol: Document 03/17/24 13:02 [facility] (Rec: 03/17/24 16:02 [facility] [id number]) Physical Therapy Assessment Rehab Potential Rehabilitation Potential Good Evaluation Complexity Number of Personal Factors/Comorbidities 3 or More Number of Body Systems Impaired 4 or More Clinical Presentation at Evaluation Unstable Impairments Impairments Activity Tolerance,Functional Activities,Functional Mobility ,Pain,Posture,ROM,Soft Tissue Mobility,Strength Other Concerns Barriers to Rehabilitation higher co pay Goals activity Short Term Goal (STG) Pt will be able to work at desk without inc tingling or pain STG Duration 04/22 Alf Goal (LTG) Pt will report able to increase to light exercise w/o inc pain in tspine or shoudler. LTG Duration 06/09 strength Short Term Goal (STG) Pt will be indep w/HEP STG Duration 04/22 Alf Goal (LTG) Pt will score atleast 4/5 on EFT and 5/5 on BUE mMT to show improved stability to allow greater ease w/daily activities. LTG Duration 06/02 Assessment Summary Assessment Pt presents w/R shoulder pain after 2 falls onto shoulder 4 months ago and chronic (mult year) hx of thoracic pain. She has inc pain in scap and R shoulder w/lifting activities, desk time and tends to work through her pain.S he has multiple comorbitiies and more follow up w/MDs being done on ECHO testing, GI issues and POTs, which could be related to some symptoms noted ( lightheadedness) w/testing today. Further testing needed to screen further of cervical spine to determine pt may require further medical testing or assessment from re: this issue. She does show restrictions in thoracic region though and weakenss in shoulder consistant w/neural tension found in testing today . Pt would benefit from skilled PT to imrpove her mobility and dec pain w/inc function. Physical Therapy Plan Frequency and Duration Frequency of Treatment 1-2x/wk Duration of treatment (weeks) 12 Plan of Care Start Date 03/17/24 Plan of Care End Date 06/09/24 Therapeutic Interventions Therapeutic Interventions Gait Training,Home Exercise Program,Joint Mobilizations, Manual Therapy,Neuromuscular Re-education,Orthotic/ Prosthetic Management,Patient/ Caregiver Education,Self-Care/ Home Management,Soft Tissue Mobilization,Taping, Therapeutic Activities, Therapeutic Exercises Modalities Cold Pack/Ice Massage,Electric Stimulation,Hot Packs, Infrared Therapy,Ultrasound Next Visit Focus/Plan Next Note Type Treatment Note Next Visit Plan avoid upper cervical, ligamentous screening, cranial n screen, reflex testing manual: focus pec, ribs and upper tspine and n paths down arm HEP: open book, paloff press, cat/cow, rows, shoulder ER & IR Plan of Care Dates Plan of Care Start Date 03/17/24 Plan of Care End Date 06/09/24 Electronically Signed by: Francy Ayon, PT 03/17/24 3432 If you are in agreement with this Plan of Care, please return a signed and dated copy. I have reviewed this Plan of Care and certify that the skilled therapy services above are required to meet the patient?s needs. Physician Signature Date Printed Name and Credentials Clinical Instructor Signature Printed Name and Credentials
--- NOTE | 2024-03-21 13:18 | PT.OTN ---
Current Diagnoses Pain in right shoulder (03/21/24) Physical Therapy Treatment Note PT-OP-A Visit Information Start: 03/10/24 09:52 Freq: Status: Active Protocol: Document 03/21/24 11:21 [facility] (Rec: 03/21/24 13:18 [facility] [id number]) Out-Patient Physical Therapy Visit Information Visit Information Visit Type Treatment Note Visit Start Time 11:20 Visit Stop Time 11:53 Visit Number 2 Number of SAND CUTTER Visits 0 PT-OP-B Current Condition Start: 03/10/24 09:52 Freq: Status: Active Protocol: Document 03/17/24 13:02 [facility] (Rec: 03/17/24 16:02 [facility] [id number]) Current Condition History of Current Condition Onset Date october and 2016 Current Complaints R shoulder and upper back pain History of Current Condition Pt reports R shoulder pain is from hiking accident where is was really slippery and fell this October. She also fell nto her shoulder hard. taht was 5 weeks after hysterecotmy. 2 weeks later, seh passed out and fell on her shoulder again . Is doing work ups for POTs. Pain in her back is a constant thing since 2017. In 2017, had R a rhomdoid injury and went to chiro, massage and acupuncture which helped, but never went away. Was at a workout conference and feels like she may have overused it. since shoulder injury, it got worse. Has been doing some massage and does some stretching. Massage gvies relief in tspinebut then it comes back. Uses Tens unit on shoulder but doesn't notice much help from that. Has had chronic issues w/pelvic issues including bleeding so stopped working out. 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 HOping toget back to working out. Has thyroid issues also and is on meds. Has noted some TMJ issues. numbness and tinging in all fingers ant ( typing, when did lashes, did that, sometimes just sitting) and when wakes up has ant antebrachium numbness on L into digits 3-5, R digits 2,3, 5. 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 Prior Treatments and Tests head neck US: 1. There is a mildly prominent lymph node within the right parotid gland and left submandibular gland. These are nonspecific in etiology and may be reactive. 2. There is a small lymph node within the left parotid gland that is not enlarged by size criteria. shoudler xray: IMPRESSION: No acute bony abnormality. Treatment Goals Patient/Caregiver Goals improve self pain management, resume more activity ,do daily activity w/less pain PT-OP-C Subjective Start: 03/10/24 09:52 Freq: Status: Active Protocol: Document 03/21/24 11:21 [facility] (Rec: 03/21/24 13:18 [facility] [id number]) OP-PT Subjective Patient Comments Patient Comments Pt reports she was sore after last session. Getting further workout on thyroid w/imaging next week. 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 (Rec: 03/17/24 16:02 [facility] [id number]) Manual Assessments Soft Tissue Assessment Soft Tissue Mobility Assessment significant B periscap tightness, UT, LS scalenes PT-OP-J Posture/Palpation/Skin Start: 03/10/24 09:52 Freq: Status: Active Protocol: Document 03/17/24 13:02 [facility] (Rec: 03/17/24 16:02 [facility] [id number]) Posture Evaluation Oscar Postural Classification System Oscar Postural Classifications Posterior/Posterior Vertical Compression Test 0 Elbow Flexion Test 0 Comments Posture Comments ant tip of B scap, R humerus more ant PT-OP-K Range of Motion Start: 03/10/24 09:52 Freq: Status: Active Protocol: Document 03/17/24 13:02 [facility] (Rec: 03/17/24 16:02 [facility] [id number]) Cervical Spine Range of Motion Cervical Spine Active Degrees Flexion 48 Extension 49 Rotation Left 68 Rotation Right 60 Lateral Flexion Left 45 Lateral Flexion Right 48 Comments 50% rot R: 40% L thoracic rot Shoulder Goniometric Range of Motion Shoulder Right Active Flexion 142 Extension 50 Abduction 142 External Rotation at 90 degrees 86 Abduction External Rotation at 0 degrees Abduction 59 Internal Rotation Behind Back (text) T7 Comments tight and some pain Left Active Flexion 157 Extension 50 Abduction 172 External Rotation at 90 degrees 93 Abduction External Rotation at 0 degrees Abduction 72 Internal Rotation Behind Back (text) T6 PT-OP-L Special Tests Start: 03/10/24 09:52 Freq: Status: Active Protocol: Document 03/21/24 11:21 [facility] (Rec: 03/21/24 13:18 [facility] [id number]) Special Tests Cervical Spine Special Tests cranial nerves Test Results CN1 impaired-unable to smell rubbing alcohol-notes did not smell coffee Comments saccades w/smooth persuit, CN IX- no gag reflex Other Special Tests Special Tests B triceps- 0 brachioradiolis R: 2+ , L- 0 B biceps 2+ PT-OP-M Strength Start: 03/10/24 09:52 Freq: Status: Active Protocol: Document 03/17/24 13:02 [facility] (Rec: 03/17/24 16:02 [facility] [id number]) Shoulder Strength Shoulder Manual Muscle Testing Left Flexion 4+ Good+ Extension 4+ Good+ Abduction (C5) 4+ Good+ External Rotation 4- Good- Internal Rotation 4- Good- Right Flexion 3+ Fair+ Extension 4 Good Abduction (C5) 3+ Fair+ External Rotation 3+ Fair+ Internal Rotation 4- Good- Comments pain PT-OP-Q Treatments Start: 03/10/24 09:52 Freq: Status: Active Protocol: Document 03/21/24 11:21 [facility] (Rec: 03/21/24 13:18 [facility] [id number]) Therapeutic Exercises Sidelying Exercises open book Side bilateral Reps/Minutes 10 Standing Exercises row Side bilateral Equipment Used orange band Reps/Minutes 10 Comments cues scap retraction w/o lumbar ext ER Standing Exercise Name double arm Side bilateral Equipment Used L1 Reps/Minutes 8 IR Side bilateral Resistance orange band Equipment Used towel at side Reps/Minutes 8 ea paloff press Side bilateral Resistance 2 orange bands Reps/Minutes 10 Comments cues posture Other Exercises cat/cow Other Exercise Name cues for rock back to inc tspine ext and lumbar flex Reps/Minutes 10 PT-OP-T Assessment and Plan Start: 03/10/24 09:52 Freq: Status: Active Protocol: Document 03/21/24 11:21 [facility] (Rec: 03/21/24 13:18 [facility] [id number]) Physical Therapy Assessment Goals activity Short Term Goal (STG) Pt will be able to work at desk without inc tingling or pain STG Duration 04/22 Ash Worker Goal (LTG) Pt will report able to increase to light exercise w/o inc pain in tspine or shoudler. LTG Duration 06/09 strength Short Term Goal (STG) Pt will be indep w/HEP STG Duration 04/22 Fdc Goal (LTG) Pt will score atleast 4/5 on EFT and 5/5 on BUE mMT to show improved stability to allow greater ease w/daily activities. LTG Duration 06/02 Assessment Summary Assessment Based on testing today, pt may benefit from CTA of head/neck d/t pt's reponse to spurling test last session, irregularity w/reflexes, 3 cranial nerves w/some noted concerns, lightheadeness w/ vertebral artery positional screening and hx of passing out. She did well with exercises today w/o inc pain but notes shoulder mm burning . Physical Therapy Plan Frequency and Duration Frequency of Treatment 1-2x/wk Duration of treatment (weeks) 12 Plan of Care Start Date 03/17/24 Plan of Care End Date 06/09/24 Next Visit Focus/Plan Next Note Type Treatment Note Next Visit Plan avoid cervical spine treatment at this time manual: focus pec, ribs and upper tspine and n paths down arm & R shoulder mobs-avoid anything that causes dizziness /lightheadedness etc review HEP: open book, paloff press, cat/cow, rows, shoulder ER & IR
--- NOTE | 2024-03-25 10:28 | PT.OTN ---
Current Diagnoses Pain in right shoulder (03/25/24) Physical Therapy Treatment Note PT-OP-A Visit Information Start: 03/10/24 09:52 Freq: Status: Active Protocol: Document 03/25/24 09:46 [facility] (Rec: 03/25/24 10:32 SP [id number]) Out-Patient Physical Therapy Visit Information Visit Information Visit Type Treatment Note Visit Start Time 09:46 Visit Stop Time 10:28 Visit Number 3 Number of CAPSULE FILLER Visits 1 PT-OP-B Current Condition Start: 03/10/24 09:52 Freq: Status: Active Protocol: Document 03/17/24 13:02 [facility] (Rec: 03/17/24 16:02 [facility] [id number]) Current Condition History of Current Condition Onset Date october and 2016 Current Complaints R shoulder and upper back pain History of Current Condition Pt reports R shoulder pain is from hiking accident where is was really slippery and fell this October. She also fell nto her shoulder hard. taht was 5 weeks after hysterecotmy. 2 weeks later, seh passed out and fell on her shoulder again . Is doing work ups for POTs. Pain in her back is a constant thing since 2017. In 2017, had R a rhomdoid injury and went to chiro, massage and acupuncture which helped, but never went away. Was at a workout conference and feels like she may have overused it. since shoulder injury, it got worse. Has been doing some massage and does some stretching. Massage gvies relief in tspinebut then it comes back. Uses Tens unit on shoulder but doesn't notice much help from that. Has had chronic issues w/pelvic issues including bleeding so stopped working out. 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 HOping toget back to working out. Has thyroid issues also and is on meds. Has noted some TMJ issues. numbness and tinging in all fingers ant ( typing, when did lashes, did that, sometimes just sitting) and when wakes up has ant antebrachium numbness on L into digits 3-5, R digits 2,3, 5. 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 Prior Treatments and Tests head neck US: 1. There is a mildly prominent lymph node within the right parotid gland and left submandibular gland. These are nonspecific in etiology and may be reactive. 2. There is a small lymph node within the left parotid gland that is not enlarged by size criteria. shoudler xray: IMPRESSION: No acute bony abnormality. Treatment Goals Patient/Caregiver Goals improve self pain management, resume more activity ,do daily activity w/less pain PT-OP-C Subjective Start: 03/10/24 09:52 Freq: Status: Active Protocol: Document 03/25/24 09:46 [facility] (Rec: 03/25/24 10:32 SP [id number]) OP-PT Subjective Patient Comments Patient Comments Pt reports awaiting CT scan referral authorization to have done. Was almost full body and scapular soreness after last tx and compliant with HEP , took day off due to needing recovery day. She is picking up referral [facility] and walking over to [facility] due to not receiving x2 requesting. Hasn' t had dizziness today. PT-OP-F Manual Assessment Start: 03/10/24 09:52 Freq: Status: Active Protocol: Document 03/17/24 13:02 [facility] (Rec: 03/17/24 16:02 [facility] [id number]) Manual Assessments Soft Tissue Assessment Soft Tissue Mobility Assessment significant B periscap tightness, UT, LS scalenes PT-OP-J Posture/Palpation/Skin Start: 03/10/24 09:52 Freq: Status: Active Protocol: Document 03/17/24 13:02 [facility] (Rec: 03/17/24 16:02 [facility] [id number]) Posture Evaluation Oscar Postural Classification System [facility] Postural Classifications Posterior/Posterior Vertical Compression Test 0 Elbow Flexion Test 0 Comments Posture Comments ant tip of B scap, R humerus more ant PT-OP-K Range of Motion Start: 03/10/24 09:52 Freq: Status: Active Protocol: Document 03/17/24 13:02 [facility] (Rec: 03/17/24 16:02 [facility] [id number]) Cervical Spine Range of Motion Cervical Spine Active Degrees Flexion 48 Extension 49 Rotation Left 68 Rotation Right 60 Lateral Flexion Left 45 Lateral Flexion Right 48 Comments 50% rot R: 40% L thoracic rot Shoulder Goniometric Range of Motion Shoulder Right Active Flexion 142 Extension 50 Abduction 142 External Rotation at 90 degrees 86 Abduction External Rotation at 0 degrees Abduction 59 Internal Rotation Behind Back (text) T7 Comments tight and some pain Left Active Flexion 157 Extension 50 Abduction 172 External Rotation at 90 degrees 93 Abduction External Rotation at 0 degrees Abduction 72 Internal Rotation Behind Back (text) T6 PT-OP-L Special Tests Start: 03/10/24 09:52 Freq: Status: Active Protocol: Document 03/21/24 11:21 [facility] (Rec: 03/21/24 13:18 [facility] [id number]) Special Tests Cervical Spine Special Tests cranial nerves Test Results CN1 impaired-unable to smell rubbing alcohol-notes did not smell coffee Comments saccades w/smooth persuit, CN IX- no gag reflex Other Special Tests Special Tests B triceps- 0 brachioradiolis R: 2+ , L- 0 B biceps 2+ PT-OP-M Strength Start: 03/10/24 09:52 Freq: Status: Active Protocol: Document 03/17/24 13:02 [facility] (Rec: 03/17/24 16:02 [facility] [id number]) Shoulder Strength Shoulder Manual Muscle Testing Left Flexion 4+ Good+ Extension 4+ Good+ Abduction (C5) 4+ Good+ External Rotation 4- Good- Internal Rotation 4- Good- Right Flexion 3+ Fair+ Extension 4 Good Abduction (C5) 3+ Fair+ External Rotation 3+ Fair+ Internal Rotation 4- Good- Comments pain PT-OP-Q Treatments Start: 03/10/24 09:52 Freq: Status: Active Protocol: Document 03/25/24 09:46 [facility] (Rec: 03/25/24 10:32 SP [id number]) Therapeutic Exercises Supine Exercises foam roller Supine Exercise Name reviewed a past HEP for scapular ROM flexibility Side bilateral Resistance AROM Reps/Minutes 2x10 each cool down incorporate during day for postural aware sitting desk Comments FF, HABD, serratus press, pec stretch, snow dionna Standing Exercises extension Standing Exercise Name added to HEP Side bilateral Resistance TB #3 [place] Reps/Minutes 2x10 Comments cued open chest/ LT fac during pulling back row Standing Exercise Name HEP Side bilateral Equipment Used orange band> Green #3 TB ( provided for home) Reps/Minutes 10 Comments cues scap retraction w/o lumbar ext ER Standing Exercise Name double arm- HEP Side bilateral Equipment Used L1 Reps/Minutes 2x10 Comments good form, pnfree IR Standing Exercise Name HEP Side bilateral Resistance orange band ( TB #1 light blue home) Equipment Used towel at side Reps/Minutes 2x10 Comments good form and slow control paloff press Side bilateral Resistance 2 orange bands ( [place] Tb #1 light blue home) Reps/Minutes 10 Comments improved posture Other Exercises Self STMs Other Exercise Name discussed known ball wall inter scap for self massage vs Comments that right, forgot about the ball, also have massage chair Manual Therapy Treatment Soft Tissue Mobilization R shld Body Location STMs /c scapulothoracic: UT, LS, Rhomboid, LT, pec Mobilization Type Rolling,Sustained Pressure, Other Body Position L SL Self-Care/Home Management Treatment Education Patient Education Body Mechanics,Pain Management ,Posture,Safety Other Education 2 min: ed mindful of position change with foam roller UE AROM not perform is causing Dizziness, none today. Also HEP 1/day but can add again if need for counter act sitting at computer. Discussion self massage posterior for decreased soreness and mindful posture. PT-OP-T Assessment and Plan Start: 03/10/24 09:52 Freq: Status: Active Protocol: Document 03/25/24 09:46 [facility] (Rec: 03/25/24 10:32 SP [id number]) Physical Therapy Assessment Goals activity Short Term Goal (STG) Pt will be able to work at desk without inc tingling or pain STG Duration 04/22 Human Resource Management Instructor Goal (LTG) Pt will report able to increase to light exercise w/o inc pain in tspine or shoudler. LTG Duration 06/09 strength Short Term Goal (STG) Pt will be indep w/HEP STG Duration 04/22 Human Resource Management Instructor Goal (LTG) Pt will score atleast 4/5 on EFT and 5/5 on BUE mMT to show improved stability to allow greater ease w/daily activities. LTG Duration 06/02 Assessment Summary Assessment Pt Physical Therapy Plan Frequency and Duration Frequency of Treatment 1-2x/wk Duration of treatment (weeks) 12 Plan of Care Start Date 03/17/24 Plan of Care End Date 06/09/24 Therapeutic Interventions Therapeutic Interventions Gait Training,Home Exercise Program,Joint Mobilizations, Manual Therapy,Neuromuscular Re-education,Orthotic/ Prosthetic Management,Patient/ Caregiver Education,Self-Care/ Home Management,Soft Tissue Mobilization,Taping, Therapeutic Activities, Therapeutic Exercises Modalities Cold Pack/Ice Massage,Electric Stimulation,Hot Packs, Infrared Therapy,Ultrasound Next Visit Focus/Plan Next Note Type Treatment Note Next Visit Plan avoid cervical spine Add postural alignment sitting work station, HEP counter act postural relief. POC: treatment at this time manual: focus pec, ribs and upper tspine and n paths down arm & R shoulder mobs-avoid anything that causes dizziness /lightheadedness etc review HEP: open book, paloff press, cat/cow, rows & extension, shoulder ER & IR, UE AROM on foam roller
--- NOTE | 2024-03-29 10:31 | PT.OTN ---
Current Diagnoses Pain in right shoulder (03/29/24) Physical Therapy Treatment Note PT-OP-A Visit Information Start: 03/10/24 09:52 Freq: Status: Active Protocol: Document 03/29/24 09:51 SP (Rec: 03/29/24 10:33 SP [id number]) Out-Patient Physical Therapy Visit Information Visit Information Visit Type Treatment Note Visit Start Time 09:51 Visit Stop Time 10:31 Visit Number 4 Number of BANKRUPTCY LEGAL ASSISTANT Visits 2 PT-OP-B Current Condition Start: 03/10/24 09:52 Freq: Status: Active Protocol: Document 03/17/24 13:02 [facility] (Rec: 03/17/24 16:02 [facility] [id number]) Current Condition History of Current Condition Onset Date october and 2016 Current Complaints R shoulder and upper back pain History of Current Condition Pt reports R shoulder pain is from hiking accident where is was really slippery and fell this October. She also fell nto her shoulder hard. taht was 5 weeks after hysterecotmy. 2 weeks later, seh passed out and fell on her shoulder again . Is doing work ups for POTs. Pain in her back is a constant thing since 2017. In 2017, had R a rhomdoid injury and went to chiro, massage and acupuncture which helped, but never went away. Was at a workout conference and feels like she may have overused it. since shoulder injury, it got worse. Has been doing some massage and does some stretching. Massage gvies relief in tspinebut then it comes back. Uses Tens unit on shoulder but doesn't notice much help from that. Has had chronic issues w/pelvic issues including bleeding so stopped working out. 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 HOping toget back to working out. Has thyroid issues also and is on meds. Has noted some TMJ issues. numbness and tinging in all fingers ant ( typing, when did lashes, did that, sometimes just sitting) and when wakes up has ant antebrachium numbness on L into digits 3-5, R digits 2,3, 5. 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 Prior Treatments and Tests head neck US: 1. There is a mildly prominent lymph node within the right parotid gland and left submandibular gland. These are nonspecific in etiology and may be reactive. 2. There is a small lymph node within the left parotid gland that is not enlarged by size criteria. shoudler xray: IMPRESSION: No acute bony abnormality. Treatment Goals Patient/Caregiver Goals improve self pain management, resume more activity ,do daily activity w/less pain PT-OP-C Subjective Start: 03/10/24 09:52 Freq: Status: Active Protocol: Document 03/29/24 09:51 SP (Rec: 03/29/24 10:33 SP [id number]) OP-PT Subjective Patient Comments Patient Comments Pt reports CT head and neck, osteopathic consult hand neck back and MFR work this am. This afternoon abdominal CT for Chrones disease referral from GI seeing for check up and lab thyroid levels at [facility]. PT-OP-F Manual Assessment Start: 03/10/24 09:52 Freq: Status: Active Protocol: Document 03/17/24 13:02 [facility] (Rec: 03/17/24 16:02 [facility] [id number]) Manual Assessments Soft Tissue Assessment Soft Tissue Mobility Assessment significant B periscap tightness, UT, LS scalenes PT-OP-J Posture/Palpation/Skin Start: 03/10/24 09:52 Freq: Status: Active Protocol: Document 03/17/24 13:02 [facility] (Rec: 03/17/24 16:02 [facility] [id number]) Posture Evaluation Oscar Postural Classification System Oscar Postural Classifications Posterior/Posterior Vertical Compression Test 0 Elbow Flexion Test 0 Comments Posture Comments ant tip of B scap, R humerus more ant PT-OP-K Range of Motion Start: 03/10/24 09:52 Freq: Status: Active Protocol: Document 03/17/24 13:02 [facility] (Rec: 03/17/24 16:02 [facility] [id number]) Cervical Spine Range of Motion Cervical Spine Active Degrees Flexion 48 Extension 49 Rotation Left 68 Rotation Right 60 Lateral Flexion Left 45 Lateral Flexion Right 48 Comments 50% rot R: 40% L thoracic rot Shoulder Goniometric Range of Motion Shoulder Right Active Flexion 142 Extension 50 Abduction 142 External Rotation at 90 degrees 86 Abduction External Rotation at 0 degrees Abduction 59 Internal Rotation Behind Back (text) T7 Comments tight and some pain Left Active Flexion 157 Extension 50 Abduction 172 External Rotation at 90 degrees 93 Abduction External Rotation at 0 degrees Abduction 72 Internal Rotation Behind Back (text) T6 PT-OP-L Special Tests Start: 03/10/24 09:52 Freq: Status: Active Protocol: Document 03/21/24 11:21 [facility] (Rec: 03/21/24 13:18 [facility] [id number]) Special Tests Cervical Spine Special Tests cranial nerves Test Results CN1 impaired-unable to smell rubbing alcohol-notes did not smell coffee Comments saccades w/smooth persuit, CN IX- no gag reflex Other Special Tests Special Tests B triceps- 0 brachioradiolis R: 2+ , L- 0 B biceps 2+ PT-OP-M Strength Start: 03/10/24 09:52 Freq: Status: Active Protocol: Document 03/17/24 13:02 [facility] (Rec: 03/17/24 16:02 [facility] [id number]) Shoulder Strength Shoulder Manual Muscle Testing Left Flexion 4+ Good+ Extension 4+ Good+ Abduction (C5) 4+ Good+ External Rotation 4- Good- Internal Rotation 4- Good- Right Flexion 3+ Fair+ Extension 4 Good Abduction (C5) 3+ Fair+ External Rotation 3+ Fair+ Internal Rotation 4- Good- Comments pain PT-OP-Q Treatments Start: 03/10/24 09:52 Freq: Status: Active Protocol: Document 03/29/24 09:51 SP (Rec: 03/29/24 10:33 SP [id number]) Therapeutic Exercises Sidelying Exercises open book Sidelying Exercise Name reviewed form Side bilateral Reps/Minutes 10 paused end range pec stretch Comments good form, less te nsion on shlds Standing Exercises pec stretch Standing Exercise Name added toHEP /c HEP Side bilateral Equipment Used doorframe Reps/Minutes 3 x30 sec Comments split stance neutral CS, LS good stretch jagjit range wall posture /c humeral ER Standing Exercise Name trialed and added to HEP /c HEP Side bilateral Equipment Used *good mid back and core engagement, suprised how much she can utilize postu Reps/Minutes 10 SH x5 reps Comments cued PPT, relax shld down, humeral ER extension Standing Exercise Name review HEP Side bilateral Resistance TB #3 [place] green> orange PT ( light blue home) Reps/Minutes 2x10 Comments cued rhomboid fac, improved less burning feeling with orange row Standing Exercise Name HEP Side bilateral Equipment Used orange band> Green #3 TB> orange PT (B #1 light blue home( Reps/Minutes 2x10 Comments cued rhomboid fac, improved less burning feeling with orange IR Standing Exercise Name HEP Side bilateral Resistance orange band ( TB #1 light blue home) Equipment Used ok no towel under arm Reps/Minutes 2x10 Comments good form and slow control paloff press Side bilateral Resistance 2 orange bands ( [place] Tb #1 light blue home) Reps/Minutes 2x 10 Comments good from, painfree reported PT-OP-T Assessment and Plan Start: 03/10/24 09:52 Freq: Status: Active Protocol: Document 03/29/24 09:51 SP (Rec: 03/29/24 10:33 SP [id number]) Physical Therapy Assessment Goals activity Short Term Goal (STG) Pt will be able to work at desk without inc tingling or pain STG Duration 04/22 Store Person Goal (LTG) Pt will report able to increase to light exercise w/o inc pain in tspine or shoudler. LTG Duration 06/09 strength Short Term Goal (STG) Pt will be indep w/HEP STG Duration 04/22 Store Person Goal (LTG) Pt will score atleast 4/5 on EFT and 5/5 on BUE mMT to show improved stability to allow greater ease w/daily activities. LTG Duration 06/02 Assessment Summary Assessment Pt had some buring feeling in B deltoid area when review of Level 3 theraband, reduction with lowering back to Level 2 band (orange in PT, light blue at home). She improved self form corrections during resisted ther ex, progressed scapular mobility and postural awareness with addition of wall posture and pec stretch in doorway with reports I feel so much more movement. PRovided HOs for carryover set up and form for home. Pt reports no pain end tx. Physical Therapy Plan Frequency and Duration Frequency of Treatment 1-2x/wk Duration of treatment (weeks) 12 Plan of Care Start Date 03/17/24 Plan of Care End Date 06/09/24 Therapeutic Interventions Therapeutic Interventions Gait Training,Home Exercise Program,Joint Mobilizations, Manual Therapy,Neuromuscular Re-education,Orthotic/ Prosthetic Management,Patient/ Caregiver Education,Self-Care/ Home Management,Soft Tissue Mobilization,Taping, Therapeutic Activities, Therapeutic Exercises Modalities Cold Pack/Ice Massage,Electric Stimulation,Hot Packs, Infrared Therapy,Ultrasound Next Visit Focus/Plan Next Note Type Treatment Note Next Visit Plan avoid cervical spine Add postural alignment sitting work station, HEP counter act postural relief. POC: treatment at this time manual: focus pec, ribs and upper tspine and n paths down arm & R shoulder mobs-avoid anything that causes dizziness /lightheadedness etc review HEP: open book, paloff press, cat/cow, rows & extension, shoulder ER & IR, UE AROM on foam roller
--- NOTE | 2024-04-08 10:30 | PT.OTN ---
Current Diagnoses Pain in right shoulder (04/08/24) Physical Therapy Treatment Note PT-OP-A Visit Information Start: 03/10/24 09:52 Freq: Status: Active Protocol: Document 04/08/24 09:50 SP (Rec: 04/08/24 10:44 SP [id number]) Out-Patient Physical Therapy Visit Information Visit Information Visit Type Treatment Note Visit Start Time 09:50 Visit Stop Time 10:30 Visit Number 40 Number of CERTIFIED PROFESSIONAL ERGONOMIST Visits 3 PT-OP-B Current Condition Start: 03/10/24 09:52 Freq: Status: Active Protocol: Document 03/17/24 13:02 [facility] (Rec: 03/17/24 16:02 [facility] [id number]) Current Condition History of Current Condition Onset Date october and 2016 Current Complaints R shoulder and upper back pain History of Current Condition Pt reports R shoulder pain is from hiking accident where is was really slippery and fell this October. She also fell nto her shoulder hard. taht was 5 weeks after hysterecotmy. 2 weeks later, seh passed out and fell on her shoulder again . Is doing work ups for POTs. Pain in her back is a constant thing since 2017. In 2017, had R a rhomdoid injury and went to chiro, massage and acupuncture which helped, but never went away. Was at a workout conference and feels like she may have overused it. since shoulder injury, it got worse. Has been doing some massage and does some stretching. Massage gvies relief in tspinebut then it comes back. Uses Tens unit on shoulder but doesn't notice much help from that. Has had chronic issues w/pelvic issues including bleeding so stopped working out. 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 HOping toget back to working out. Has thyroid issues also and is on meds. Has noted some TMJ issues. numbness and tinging in all fingers ant ( typing, when did lashes, did that, sometimes just sitting) and when wakes up has ant antebrachium numbness on L into digits 3-5, R digits 2,3, 5. 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 Prior Treatments and Tests head neck US: 1. There is a mildly prominent lymph node within the right parotid gland and left submandibular gland. These are nonspecific in etiology and may be reactive. 2. There is a small lymph node within the left parotid gland that is not enlarged by size criteria. shoudler xray: IMPRESSION: No acute bony abnormality. 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 Dr stated can go about normal activity and is aware of things that she does that can cause symptoms and continue to avoid and be cautious. Pt stated is going to get a hearing dog trainer to help teach her dog to become a service dog for added support to her to help idenify symptoms for prevention. She stated has been more sore than usual in her R shld. Talked about body positioning for reduction R arm fall alseep laying on R side and using pillows all way around her well and discussed not sleeping on R side or sleep onback with pillows under R arm supported for circtulation and decreased nerve irritation cauing tingling. PT-OP-F Manual Assessment Start: 03/10/24 09:52 Freq: Status: Active Protocol: Document 03/17/24 13:02 [facility] (Rec: 03/17/24 16:02 [facility] [id number]) Manual Assessments Soft Tissue Assessment Soft Tissue Mobility Assessment significant B periscap tightness, UT, LS scalenes PT-OP-J Posture/Palpation/Skin Start: 03/10/24 09:52 Freq: Status: Active Protocol: Document 03/17/24 13:02 [facility] (Rec: 03/17/24 16:02 [facility] [id number]) Posture Evaluation Oscar Postural Classification System Oscar Postural Classifications Posterior/Posterior Vertical Compression Test 0 Elbow Flexion Test 0 Comments Posture Comments ant tip of B scap, R humerus more ant PT-OP-K Range of Motion Start: 03/10/24 09:52 Freq: Status: Active Protocol: Document 03/17/24 13:02 [facility] (Rec: 03/17/24 16:02 [facility] [id number]) Cervical Spine Range of Motion Cervical Spine Active Degrees Flexion 48 Extension 49 Rotation Left 68 Rotation Right 60 Lateral Flexion Left 45 Lateral Flexion Right 48 Comments 50% rot R: 40% L thoracic rot Shoulder Goniometric Range of Motion Shoulder Right Active Flexion 142 Extension 50 Abduction 142 External Rotation at 90 degrees 86 Abduction External Rotation at 0 degrees Abduction 59 Internal Rotation Behind Back (text) T7 Comments tight and some pain Left Active Flexion 157 Extension 50 Abduction 172 External Rotation at 90 degrees 93 Abduction External Rotation at 0 degrees Abduction 72 Internal Rotation Behind Back (text) T6 PT-OP-L Special Tests Start: 03/10/24 09:52 Freq: Status: Active Protocol: Document 03/21/24 11:21 [facility] (Rec: 03/21/24 13:18 [facility] [id number]) Special Tests Cervical Spine Special Tests cranial nerves Test Results CN1 impaired-unable to smell rubbing alcohol-notes did not smell coffee Comments saccades w/smooth persuit, CN IX- no gag reflex Other Special Tests Special Tests B triceps- 0 brachioradiolis R: 2+ , L- 0 B biceps 2+ PT-OP-M Strength Start: 03/10/24 09:52 Freq: Status: Active Protocol: Document 03/17/24 13:02 [facility] (Rec: 03/17/24 16:02 [facility] [id number]) Shoulder Strength Shoulder Manual Muscle Testing Left Flexion 4+ Good+ Extension 4+ Good+ Abduction (C5) 4+ Good+ External Rotation 4- Good- Internal Rotation 4- Good- Right Flexion 3+ Fair+ Extension 4 Good Abduction (C5) 3+ Fair+ External Rotation 3+ Fair+ Internal Rotation 4- Good- Comments pain PT-OP-Q Treatments Start: 03/10/24 09:52 Freq: Status: Active Protocol: Document 04/08/24 09:50 SP (Rec: 04/08/24 10:44 SP [id number]) Therapeutic Exercises Sidelying Exercises shoulder FF & ABD Sidelying Exercise Name trialed in PT- Side right Reps/Minutes 5 reps Comments reports slight warm buring sensation open book Sidelying Exercise Name reviewed form Side bilateral Reps/Minutes 10 paused end range pec stretch Comments good form, less te nsion on shlds Standing Exercises IR stretch Standing Exercise Name self stretch activity Side right Resistance AROM hand in back Reps/Minutes 2 x20 sec Comments reports diminishes any muscle R shld burn pec stretch Side bilateral Equipment Used doorframe Reps/Minutes 3 x30 sec Comments split stance neutral CS, LS good stretch jagjit range row Standing Exercise Name HEP Side bilateral Equipment Used orange band> Green #3 TB> orange PT ( provided #2 teal home) Reps/Minutes 2x10 Comments cued rhomboid fac, improved less burning feeling with orange ER Standing Exercise Name HEP Side bilateral Resistance L1> L2 teal Equipment Used prefers no towel under arm Reps/Minutes 2x10 Comments good form, pnfree IR Standing Exercise Name HEP Side bilateral Resistance TB #1>#2 teal Equipment Used ok no towel under arm preferred Reps/Minutes 2x10 Comments good form and slow control, tiring paloff press Side bilateral Resistance double Tb #2 teal provided home) Reps/Minutes 2x 10 Comments good from, painfree reported Manual Therapy Treatment Consent Patient gave verbal consent for manual Yes treatment Soft Tissue Mobilization R shld Body Location STMs /c scapulothoracic: UT, LS, Rhomboid, LT, pec Mobilization Type Rolling,Sustained Pressure, Other Body Position L SL Self-Care/Home Management Treatment Education Patient Education Body Mechanics,Pain Management ,Posture,Safety Other Education Suggested sleeping on back and use pillows under arms and float her heels for comfort and support nonsymptomatic arms and circulation support B feet. Due to reports tingling in R arm when finds herself on R side even with proper positioning use of pillows. WIll look into pillow for full around spinal and BUE alignment support. PT-OP-T Assessment and Plan Start: 03/10/24 09:52 Freq: Status: Active Protocol: Document 04/08/24 09:50 SP (Rec: 04/08/24 10:44 SP [id number]) Physical Therapy Assessment Goals activity Short Term Goal (STG) Pt will be able to work at desk without inc tingling or pain 04/08/24: hasn't work in about a week due to being sick. WIll set up new desk and take video how positioning. STG Duration 04/22 progressing 04/08/24. Retirement Goal (LTG) Pt will report able to increase to light exercise w/o inc pain in tspine or shoudler. LTG Duration 06/09 strength Short Term Goal (STG) Pt will be indep w/HEP STG Duration 04/22 Retirement Goal (LTG) Pt will score atleast 4/5 on EFT and 5/5 on BUE mMT to show improved stability to allow greater ease w/daily activities. LTG Duration 06/02 Assessment Summary Assessment Pt tolerated increases resistance Lv 2 latex band and likes being about to feel more of a challenge for muscle strengthening, provided L2 band for home use. She reports burning feeling in R deltoid area, improves reduction with cues for scapular stability. CERTIFIED PROFESSIONAL ERGONOMIST suggested to call about MRI referral for R shld where and when for awareness. WIll also keep us up to date with checker product design's findings with potential LEE dx. Suggested sleeping on back and use pillows under arms and float her heels for comfort and support nonsymptomatic arms and circulation support B feet . Pt will put together new work station and take video for next appt awareness for any corrections needed in positioning. Physical Therapy Plan Frequency and Duration Frequency of Treatment 1-2x/wk Duration of treatment (weeks) 12 Plan of Care Start Date 03/17/24 Plan of Care End Date 06/09/24 Therapeutic Interventions Therapeutic Interventions Gait Training,Home Exercise Program,Joint Mobilizations, Manual Therapy,Neuromuscular Re-education,Orthotic/ Prosthetic Management,Patient/ Caregiver Education,Self-Care/ Home Management,Soft Tissue Mobilization,Taping, Therapeutic Activities, Therapeutic Exercises Modalities Cold Pack/Ice Massage,Electric Stimulation,Hot Packs, Infrared Therapy,Ultrasound Next Visit Focus/Plan Next Note Type Treatment Note Next Visit Plan avoid cervical spine Add postural alignment sitting work station, HEP counter act postural relief. POC: treatment at this time manual: focus pec, ribs and upper tspine and n paths down arm & R shoulder mobs-avoid anything that causes dizziness /lightheadedness etc review HEP: open book, paloff press, cat/cow, rows & extension, shoulder ER & IR, UE AROM on foam roller
--- NOTE | 2024-04-19 09:33 | PT.OTN ---
Current Diagnoses Pain in right shoulder (04/19/24) Physical Therapy Treatment Note PT-OP-A Visit Information Start: 03/10/24 09:52 Freq: Status: Active Protocol: Document 04/19/24 07:37 [facility] (Rec: 04/19/24 09:33 [facility] [id number]) Out-Patient Physical Therapy Visit Information Visit Information Visit Type Progress Note Visit Note 07/01 Visit Start Time 07:33 Visit Stop Time 08:15 Visit Number 6 Number of POWER TECHNICIAN Visits 0 PT-OP-B Current Condition Start: 03/10/24 09:52 Freq: Status: Active Protocol: Document 03/17/24 13:02 [facility] (Rec: 03/17/24 16:02 [facility] [id number]) Current Condition History of Current Condition Onset Date october and 2016 Current Complaints R shoulder and upper back pain History of Current Condition Pt reports R shoulder pain is from hiking accident where is was really slippery and fell this October. She also fell nto her shoulder hard. taht was 5 weeks after hysterecotmy. 2 weeks later, seh passed out and fell on her shoulder again . Is doing work ups for POTs. Pain in her back is a constant thing since 2017. In 2017, had R a rhomdoid injury and went to chiro, massage and acupuncture which helped, but never went away. Was at a workout conference and feels like she may have overused it. since shoulder injury, it got worse. Has been doing some massage and does some stretching. Massage gvies relief in tspinebut then it comes back. Uses Tens unit on shoulder but doesn't notice much help from that. Has had chronic issues w/pelvic issues including bleeding so stopped working out. 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 HOping toget back to working out. Has thyroid issues also and is on meds. Has noted some TMJ issues. numbness and tinging in all fingers ant ( typing, when did lashes, did that, sometimes just sitting) and when wakes up has ant antebrachium numbness on L into digits 3-5, R digits 2,3, 5. 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 Prior Treatments and Tests head neck US: 1. There is a mildly prominent lymph node within the right parotid gland and left submandibular gland. These are nonspecific in etiology and may be reactive. 2. There is a small lymph node within the left parotid gland that is not enlarged by size criteria. shoudler xray: IMPRESSION: No acute bony abnormality. Treatment Goals Patient/Caregiver Goals improve self pain management, resume more activity ,do daily activity w/less pain PT-OP-C Subjective Start: 03/10/24 09:52 Freq: Status: Active Protocol: Document 04/19/24 07:37 [facility] (Rec: 04/19/24 09:33 [facility] [id number]) OP-PT Subjective Patient Comments Patient Comments Pt reports creasing and cutting press feeder thinks she has POTs but has a lot of testing coming up. Has esinophelic esphogitis , ulcers in stomachand sm intenstines and chronic gastritis. PT-OP-F Manual Assessment Start: 03/10/24 09:52 Freq: Status: Active Protocol: Document 03/17/24 13:02 [facility] (Rec: 03/17/24 16:02 [facility] [id number]) Manual Assessments Soft Tissue Assessment Soft Tissue Mobility Assessment significant B periscap tightness, UT, LS scalenes PT-OP-J Posture/Palpation/Skin Start: 03/10/24 09:52 Freq: Status: Active Protocol: Document 04/19/24 07:37 [facility] (Rec: 04/19/24 09:33 [facility] [id number]) Posture Evaluation Oscar Postural Classification System Oscar Postural Classifications Posterior/Posterior Vertical Compression Test 0 Elbow Flexion Test 2 Lumbar Protective Mechanism Left AP 1 Lumbar Protective Mechanism Right AP 1 Lumbar Protective Mechanism Left PA 3 Lumbar Protective Mechanism Right PA 3 PT-OP-K Range of Motion Start: 03/10/24 09:52 Freq: Status: Active Protocol: Document 03/17/24 13:02 [facility] (Rec: 03/17/24 16:02 [facility] [id number]) Cervical Spine Range of Motion Cervical Spine Active Degrees Flexion 48 Extension 49 Rotation Left 68 Rotation Right 60 Lateral Flexion Left 45 Lateral Flexion Right 48 Comments 50% rot R: 40% L thoracic rot Shoulder Goniometric Range of Motion Shoulder Right Active Flexion 142 Extension 50 Abduction 142 External Rotation at 90 degrees 86 Abduction External Rotation at 0 degrees Abduction 59 Internal Rotation Behind Back (text) T7 Comments tight and some pain Left Active Flexion 157 Extension 50 Abduction 172 External Rotation at 90 degrees 93 Abduction External Rotation at 0 degrees Abduction 72 Internal Rotation Behind Back (text) T6 PT-OP-L Special Tests Start: 03/10/24 09:52 Freq: Status: Active Protocol: Document 03/21/24 11:21 [facility] (Rec: 03/21/24 13:18 [facility] [id number]) Special Tests Cervical Spine Special Tests cranial nerves Test Results CN1 impaired-unable to smell rubbing alcohol-notes did not smell coffee Comments saccades w/smooth persuit, CN IX- no gag reflex Other Special Tests Special Tests B triceps- 0 brachioradiolis R: 2+ , L- 0 B biceps 2+ PT-OP-M Strength Start: 03/10/24 09:52 Freq: Status: Active Protocol: Document 04/19/24 07:37 [facility] (Rec: 04/19/24 09:33 [facility] [id number]) Shoulder Strength Shoulder Manual Muscle Testing Left Flexion 4+ Good+ Extension 5 Normal Abduction (C5) 4+ Good+ External Rotation 4 Good Internal Rotation 5 Normal Horizontal Abduction 5 Normal Horizontal Adduction 5 Normal Right Flexion 4+ Good+ Extension 5 Normal Abduction (C5) 4+ Good+ External Rotation 4 Good Internal Rotation 5 Normal Horizontal Abduction 4+ Good+ Horizontal Adduction 4+ Good+ PT-OP-Q Treatments Start: 03/10/24 09:52 Freq: Status: Active Protocol: Document 04/19/24 07:37 [facility] (Rec: 04/19/24 09:33 [facility] [id number]) Therapeutic Exercises Prone Exercises plank Prone Exercise Name forearm and knees Side bilateral Reps/Minutes 20 sec Comments inc time for set up Other Exercises isometrics Other Exercise Name BUE MMT and EFT quadruped Other Exercise Name 1. alt UE lifts 2. alt LE slides Side bilateral Reps/Minutes 12 ea Comments max cues for trunk Manual Therapy Treatment Consent Patient gave verbal consent for manual Yes treatment Soft Tissue Mobilization ribcage Body Location L along ribs Mobilization Type Myofascial Release Intensity/Depth Superficial Body Position Sitting abdomen Body Location L along ant rib border and obliques Mobilization Type Myofascial Release Intensity/Depth Superficial Body Position Hooklying Comments w/LTR Self-Care/Home Management Treatment Education Other Education 12 min: encouraged to follow up w/primary and creasing and cutting press feeder re: results of CTA and encouraged to cont to work w/ GI to figure out inflammatory foods as pt notes back pain inc w/eating sometimes. Pt educated that this could be referral from her GI issues PT-OP-T Assessment and Plan Start: 03/10/24 09:52 Freq: Status: Active Protocol: Document 04/19/24 07:37 [facility] (Rec: 04/19/24 09:33 [facility] [id number]) Physical Therapy Assessment Goals activity Short Term Goal (STG) Pt will be able to work at desk without inc tingling or pain 04/08/24: hasn't work in about a week due to being sick. WIll set up new desk and take video how positioning. STG Duration achieved 04/19 Business Management Consultant Goal (LTG) Pt will report able to increase to light exercise w/o inc pain in tspine or shoudler. 04/19- when doing more activity has inc pain, has stretched with relief, does PT exercises, hikes and walks- sometimes inc pain LTG Duration 06/09 strength Short Term Goal (STG) Pt will be indep w/HEP STG Duration achieved advancing as able Mcfp Goal (LTG) Pt will score atleast 4/5 on EFT and 5/5 on BUE mMT to show improved stability to allow greater ease w/daily activities. 04/19-improving LTG Duration 06/02 Assessment Summary Assessment Pt had improved B rotation w/ gentle MFR today. Challenged significantly by core. She is making progress w/strength but is still weak in trunk likely related to her scap pain. She also has improved tolerance to desk time but still difficulty w/actvity. Physical Therapy Plan Frequency and Duration Frequency of Treatment 1-2x/wk Duration of treatment (weeks) 12 Plan of Care Start Date 03/17/24 Plan of Care End Date 06/09/24 Next Visit Focus/Plan Next Note Type Treatment Note Next Visit Plan avoid cervical spine manual work on thoraic spine and gentle superficial fascial release on abdomen and ribcage progress core work w/shoulder stability and review core exercises from this session
--- NOTE | 2024-04-25 08:43 | PT-OP ANOTE ---
Pt did not show for today's appt. ASSISTANT INFANT TODDLER TEACHER called pt and voicemessage stated phone # not accepting calls at this time and no option to leave a message.
--- NOTE | 2024-05-12 09:54 | PT.OTN ---
Current Diagnoses Pain in right shoulder (05/12/24) Physical Therapy Treatment Note PT-OP-A Visit Information Start: 03/10/24 09:52 Freq: Status: Active Protocol: Document 05/12/24 08:22 [facility] (Rec: 05/12/24 09:02 [facility] [id number]) Out-Patient Physical Therapy Visit Information Visit Information Visit Type Discharge Summary Visit Start Time 08:20 Visit Stop Time 09:00 Visit Number 7 Number of CARGOMAN Visits 0 PT-OP-B Current Condition Start: 03/10/24 09:52 Freq: Status: Active Protocol: Document 03/17/24 13:02 [facility] (Rec: 03/17/24 16:02 [facility] [id number]) Current Condition History of Current Condition Onset Date october and 2016 Current Complaints R shoulder and upper back pain History of Current Condition Pt reports R shoulder pain is from hiking accident where is was really slippery and fell this October. She also fell nto her shoulder hard. taht was 5 weeks after hysterecotmy. 2 weeks later, seh passed out and fell on her shoulder again . Is doing work ups for POTs. Pain in her back is a constant thing since 2017. In 2017, had R a rhomdoid injury and went to chiro, massage and acupuncture which helped, but never went away. Was at a workout conference and feels like she may have overused it. since shoulder injury, it got worse. Has been doing some massage and does some stretching. Massage gvies relief in tspinebut then it comes back. Uses Tens unit on shoulder but doesn't notice much help from that. Has had chronic issues w/pelvic issues including bleeding so stopped working out. 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 HOping toget back to working out. Has thyroid issues also and is on meds. Has noted some TMJ issues. numbness and tinging in all fingers ant ( typing, when did lashes, did that, sometimes just sitting) and when wakes up has ant antebrachium numbness on L into digits 3-5, R digits 2,3, 5. 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 Prior Treatments and Tests head neck US: 1. There is a mildly prominent lymph node within the right parotid gland and left submandibular gland. These are nonspecific in etiology and may be reactive. 2. There is a small lymph node within the left parotid gland that is not enlarged by size criteria. shoudler xray: IMPRESSION: No acute bony abnormality. Treatment Goals Patient/Caregiver Goals improve self pain management, resume more activity ,do daily activity w/less pain PT-OP-C Subjective Start: 03/10/24 09:52 Freq: Status: Active Protocol: Document 05/12/24 08:22 [facility] (Rec: 05/12/24 09:02 [facility] [id number]) OP-PT Subjective Patient Comments Patient Comments Pt feels like shoulder stuff has gotten better. NOt having as much in R shoulder it has improved in rhomboid area. doing self fascial release. Is working w/functional med dietian and did find she was allergic to some foods. Had no pain travelling last tues and just had some tension Patient Reported Progress Improving PT-OP-F Manual Assessment Start: 03/10/24 09:52 Freq: Status: Active Protocol: Document 03/17/24 13:02 [facility] (Rec: 03/17/24 16:02 [facility] [id number]) Manual Assessments Soft Tissue Assessment Soft Tissue Mobility Assessment significant B periscap tightness, UT, LS scalenes PT-OP-J Posture/Palpation/Skin Start: 03/10/24 09:52 Freq: Status: Active Protocol: Document 05/12/24 08:22 [facility] (Rec: 05/12/24 09:02 [facility] [id number]) Posture Evaluation Oscar Postural Classification System Vertical Compression Test 3 Elbow Flexion Test 3 Lumbar Protective Mechanism Left AP 4 Lumbar Protective Mechanism Right AP 4 Lumbar Protective Mechanism Left PA 4 Lumbar Protective Mechanism Right PA 3 PT-OP-K Range of Motion Start: 03/10/24 09:52 Freq: Status: Active Protocol: Document 03/17/24 13:02 [facility] (Rec: 03/17/24 16:02 [facility] [id number]) Cervical Spine Range of Motion Cervical Spine Active Degrees Flexion 48 Extension 49 Rotation Left 68 Rotation Right 60 Lateral Flexion Left 45 Lateral Flexion Right 48 Comments 50% rot R: 40% L thoracic rot Shoulder Goniometric Range of Motion Shoulder Right Active Flexion 142 Extension 50 Abduction 142 External Rotation at 90 degrees 86 Abduction External Rotation at 0 degrees Abduction 59 Internal Rotation Behind Back (text) T7 Comments tight and some pain Left Active Flexion 157 Extension 50 Abduction 172 External Rotation at 90 degrees 93 Abduction External Rotation at 0 degrees Abduction 72 Internal Rotation Behind Back (text) T6 PT-OP-L Special Tests Start: 03/10/24 09:52 Freq: Status: Active Protocol: Document 03/21/24 11:21 [facility] (Rec: 03/21/24 13:18 [facility] [id number]) Special Tests Cervical Spine Special Tests cranial nerves Test Results CN1 impaired-unable to smell rubbing alcohol-notes did not smell coffee Comments saccades w/smooth persuit, CN IX- no gag reflex Other Special Tests Special Tests B triceps- 0 brachioradiolis R: 2+ , L- 0 B biceps 2+ PT-OP-M Strength Start: 03/10/24 09:52 Freq: Status: Active Protocol: Document 05/12/24 08:22 [facility] (Rec: 05/12/24 09:02 [facility] [id number]) Shoulder Strength Shoulder Manual Muscle Testing Left Flexion 5 Normal Extension 5 Normal Abduction (C5) 5 Normal External Rotation 5 Normal Internal Rotation 5 Normal Horizontal Abduction 5 Normal Horizontal Adduction 5 Normal Right Flexion 5 Normal Extension 5 Normal Abduction (C5) 5 Normal External Rotation 5 Normal Internal Rotation 5 Normal Horizontal Abduction 5 Normal Horizontal Adduction 5 Normal PT-OP-Q Treatments Start: 03/10/24 09:52 Freq: Status: Active Protocol: Document 05/12/24 08:22 [facility] (Rec: 05/12/24 09:02 [facility] [id number]) Therapeutic Exercises Prone Exercises plank Prone Exercise Name forearm and knees Side bilateral Reps/Minutes 30 sec Standing Exercises row Standing Exercise Name HEP Side bilateral Equipment Used knik Reps/Minutes 15 Comments min cues posture ER Standing Exercise Name HEP Side bilateral Resistance L2 teal Equipment Used prefers no towel under arm Reps/Minutes x10 Comments good form, pnfree paloff press Side bilateral Resistance 2 orange bands Reps/Minutes 12 Comments good from, painfree reported Other Exercises isometrics Other Exercise Name BUE MMT and EFT quadruped Other Exercise Name 1. alt UE lifts 2. alt LE slides Side bilateral Reps/Minutes 12 ea Comments min cues for trunk Manual Therapy Treatment Consent Patient gave verbal consent for manual Yes treatment Soft Tissue Mobilization ribcage Body Location B along ribs Mobilization Type Rolling Intensity/Depth Moderate Body Position Sitting Joint Mobilizations ribs Comments R rib external torsion 7, PA R rib 4-5 PT-OP-T Assessment and Plan Start: 03/10/24 09:52 Freq: Status: Active Protocol: Document 05/12/24 08:22 [facility] (Rec: 05/12/24 09:02 [facility] [id number]) Physical Therapy Assessment Goals activity Short Term Goal (STG) Pt will be able to work at desk without inc tingling or pain 04/08/24: hasn't work in about a week due to being sick. WIll set up new desk and take video how positioning. 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 04/19- when doing more activity has inc pain, has stretched with relief, does PT exercises, hikes and walks- sometimes inc pain 05/12-was so sick so didn't try but feels liek she could LTG Duration 06/09 strength Short Term Goal (STG) Pt will be indep w/HEP STG Duration achieved advancing as able Mcc Goal (LTG) Pt will score atleast 4/5 on EFT and 5/5 on BUE mMT to show improved stability to allow greater ease w/daily activities. 04/19-improving LTG Duration achieved except EFT Assessment Summary Assessment Pt indep w/HEP and demonstrated good perfomance in PT today. She has much dec pain overall and feels like she is doing more with less pain in R shoulder and in scap region. SHe has not started working out d/t recent sickness limiting her ability to start working out. She is to start pelvic floor PT tomorrow and will work w/that PT for progression to working out. Much improved UE and trunk strength w/PT Physical Therapy Plan Discharge Physical Therapy Discharge Reasons Goals Met
== END 2024-05-13 09:06 | disposition home or self-care (01) ==
LOC: PHYS 08:15
PROVIDERS: Family Provider Family Medicine; PCP Family Medicine; Referring Provider Family Medicine; Visit Provider Family Medicine
DX: M25.511 Pain in right shoulder (principal)
CPT/HCPCS: 97110; 97140; 97163; 97535

== ENCOUNTER 2024-06-07 08:15 | Outpatient (RCR) | payer OTHER, SELFPAY ==
[2023-10-12 11:43] VITALS: BMI 49.4
[2024-03-17 17:42] VITALS: BMI 49.4
--- NOTE | 2024-06-07 10:19 | PT.OTN ---
Current Diagnoses Stiffness of unspecified hip, not elsewhere classified (06/07/24) Low back pain, unspecified (06/07/24) Muscle weakness (generalized) (06/07/24) Unspecified urinary incontinence (06/07/24) Physical Therapy Treatment Note PT-OP-A Visit Information Start: 04/30/24 13:03 Freq: Status: Active Protocol: Document 06/07/24 08:17 LRN (Rec: 06/07/24 10:13 LRN [id number]) Out-Patient Physical Therapy Visit Information Visit Information Visit Type Treatment Note Visit Start Time 08:17 Visit Stop Time 08:58 Visit Number 2 Evaluation Information Evaluation Date 05/13/24 Precautions Precautions Manan disease w/thyroxin and liothyroine. PT-OP-B Current Condition Start: 04/30/24 13:03 Freq: Status: Active Protocol: Document 05/13/24 13:01 LRN (Rec: 05/13/24 13:51 LRN [id number]) Current Condition History of Current Condition Onset Date 3 yrs ago Current Complaints Leakage squatting, bending, getting up from recliner, cough, sneeze. History of Current Condition Pt reports she had a miscarriage 02/2020 and didn't stop bleeding until 09/2023, then had a break from bleeding after a D&C (06/2023). A hysterectomy (hyste) on 09/2023 stopping the bleeding. With all the bleeding and inflammation she feels her pelvic floor (PF) weakened. After her hyste the urinary leakage has gotten worse, but she thinks it may not be true because with wearing a pad she can't tell how much her urinary leakage is. She has urinary leakage most noticeably with bending down to pick something up or getting up from recliner chair , and with coughing/sneezing. She reports leakage rushing to bathroom to urinate ( happens daily) and feels it is worse because of her ADHD, doesn't feel urgency. She feels her core is also weak, and during her prior physical therapy rehab for her R shoulder the core work seemed to help with her leakage a little. She is trying to start returning to [facility] lifting , and walking, stretching yoga . Reported PMH: Had endometriosis, PCOS, since 2016, and new dx 2023 of adenomyosis. Prior Treatments and Tests PT for R shoulder/Rhomboid region. 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 No children. Treatment Goals Patient/Caregiver Goals Pt goals: -Eliminate leakage with bending down to pick something up or getting up from recliner chair, and with coughing/sneezing will have urinaryleakage. -learning when to urinate to not robison to bathroom to urinate (happens daily), worse because of ADHD, doesn't feel urgency. -core strengthening. -Consistent with a HEP. 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 Pt reported: Endometriosis, PCOS, since 2016, New dx in 2023 of adenomyosis, ADHD hindering her awareness of urinary urge. R posterior shoulder and LBP rated 3-4/10. PT-OP-C Subjective Start: 04/30/24 13:03 Freq: Status: Active Protocol: Document 06/07/24 08:17 LRN (Rec: 06/07/24 10:13 LRN [id number]) OP-PT Subjective Patient Comments Patient Comments Has noticed she has urgency due to waiting too long. Feels like she doesn't get the cue to go or she doesn't notice it until urgent. Has been trying the urge technique , but hasn't noticed it helping. States last week her in-law was around and did a lot of 6 mile hikes (4-5 hrs) and held urine until home. Her service dog is helping to cue her to take breaks for work so she can urinate. Used the wand the wand for stretching and found it hard to do and was uncomfortable. [place] burning, same areas as with intercourse. Pain in missionary position is least painful on insertion. In other positions has pain also with thrust. PT-OP-I Pelvic Floor Start: 04/30/24 13:03 Freq: Status: Active Protocol: Document 05/13/24 13:01 LRN (Rec: 05/13/24 13:51 LRN [id number]) Pelvic Floor Assessment Urine Leakage Cause Cough,Lifting,Sneeze,Urge Leaks Per Day 0-3 Voiding Frequency 3 Nocturia 0 Pads Used In 24 Hours 0 Bowel Bowel Movement Frequency 1 [place] Stool Chart Comments Type 4, 5 Pelvic Clock Pelvic Clock 12-3 Tenderness,Tightness Pelvic Clock 3-6 Tenderness,Tightness Pelvic Clock 6-9 Tenderness Pelvic Clock 9-12 Tenderness Prolapse Cystocele Grade 2 Perineal Descent Resting Present Bearing Present Contraction Ability Manual Muscle Testing Left 2 Manual Muscle Testing Right 3 Manual Muscle Testing Anterior 3 Manual Muscle Testing Posterior 2 Muscle Endurance (Seconds) 2 Number of Quick Contractions In 10 10 Seconds PT-OP-J Posture/Palpation/Skin Start: 04/30/24 13:03 Freq: Status: Active Protocol: Document 05/13/24 13:01 LRN (Rec: 05/13/24 13:51 LRN [id number]) Posture Evaluation Position Standing L-Spine Posture Increased Lordosis Shoulder Posture (L) Elevated Knee Posture (L) Genu Valgus,(R) Genu Valgus Ankle/Foot Posture (L) Calcaneal Eversion,(R) Calcaneal Eversion Comments Posture Comments Dowager's hump, decreased T/S curve. PT-OP-K Range of Motion Start: 04/30/24 13:03 Freq: Status: Active Protocol: Document 05/13/24 13:01 LRN (Rec: 05/13/24 13:51 LRN [id number]) Lumbar Spine Range of Motion Lumbar Spine Active Degrees Testing Position Standing Flexion 90 Extension 25 Rotation Left 25 Rotation Right 10 Lateral Flexion Left 24 Lateral Flexion Right 12 Hip Goniometric Range of Motion Hip Right Passive Internal Rotation 20 External Rotation 70 Left Passive Testing Position Supine Internal Rotation 20 External Rotation 70 PT-OP-M Strength Start: 04/30/24 13:03 Freq: Status: Active Protocol: Document 05/13/24 13:01 LRN (Rec: 05/13/24 13:51 LRN [id number]) Trunk Strength Trunk Manual Muscle Testing Core Stabilization Pt not able to maintain neutral position with MMT of LE's due to rotational weakness. Poor visible TA tightening. Hip Strength Hip Manual Muscle Testing Right Extension (S1) 3 Fair External Rotation 3 Fair Comments Strength is 5/5 except as indicated above. Left Extension (S1) 3 Fair External Rotation 3 Fair Comments Strength is 5/5 except as indicated above. PT-OP-Q Treatments Start: 04/30/24 13:03 Freq: Status: Active Protocol: Document 06/07/24 08:17 LRN (Rec: 06/07/24 10:13 LRN [id number]) Manual Therapy Treatment Consent Patient gave verbal consent for manual Yes treatment Soft Tissue Mobilization PF Body Location Superficial and Deep PF ms, primarily on L and posterior PF Mobilization Type Trigger Point Release Body Position Hooklying Comments Tender at 3-6 & 8 of PF clock Neuro Re-Education Treatment Other Activities Coordination of Kegel isolation from ABdom Details Coordination of Kegel isolating from ABdoms Reps/Duration 23' Comments Coordination performed in supine (PF 4.0 mV, ABs a.a.0mV ), sit (PF 3,9, ABs 0.5), standing. Self-Care/Home Management Treatment Education Other Education Briefly discussed pt's Bladder diary that she forgot at home , her voiding times and times between voids, and her use of urge deference technique. Pt educated in Bladder irritants and discussed types of most extreme irritating fluids/ fruits. Reviewed and discussed Urge Deference Technique and Use of wand for PF stretching, and intercourse positioning. . Activities Self-Care/Home Management Activities Handout issued for Bladder Irritants PT-OP-T Assessment and Plan Start: 04/30/24 13:03 Freq: Status: Active Protocol: Document 06/07/24 08:17 LRN (Rec: 06/07/24 10:13 LRN [id number]) Physical Therapy Assessment Goals Four Impairment Urge urinary incontinence daily rushing to bathroom Short Term Goal (STG) Pt will be educated in bladder retraining for urge deference and will improve awareness of the urge to urinate in order to calmly walk to the bathroom 75% of the time. 06/07/24: Pt educated in bladder retraining with urge technique. STG Duration 06/24/24 progressed 06/07/24 Surfacing Machine Operator Goal (LTG) Pt will be able to delay urination to decrease urinary leakage 90-100% of the time LTG Duration 08/05/24 Three Impairment Stress urinary leakage:bending over/squat,recliner chair> stand,cough,sneeze Short Term Goal (STG) Decrease PF pain and improve PF tissue tightness and weakness, with pt able to cough or sneeze without urinary leakage. STG Duration 06/24/24 Surfacing Machine Operator Goal (LTG) Eliminate leakage with bending down to pick something up or getting up from recliner chair . LTG Duration 08/05/24 Two Impairment Decreased core strength/ stability Short Term Goal (STG) Pt will be educated in proper sit/stand posture and able to demonstrate TA tightening, to work towards decreasing lumbar lordosis. STG Duration 06/24/24 Correction Goal (LTG) Improve core strength with pt able to maintain core stability with mvmt and MMT of LE's. LTG Duration 08/05/24 One Impairment Pt lacks an independent self care HEP Short Term Goal (STG) Pt will be able to demonstrate transfers to lessen core abdominal pressure, and proper deep breathing technique to be able to downtrain her system with a strong urge. STG Duration 06/24/24 Correction Goal (LTG) Pt will be independent in a self care HEP of PF care of stretches, PF relaxation technique and PF strengthening (when pt can relax her PF), Hip IR stretch, strengthening (hip ext/ER, trunk flex, rot, TA,). LTG Duration 08/05/24 Assessment Summary Assessment Pt is quite weak with PF contractions (quick and long hold) and uses Adominals most notably with long holds. Pt notes her gluteal muscles tend to activate with PF contractions. Pt forgot to bring her bladder diary but recalls long urination times and urgency with voiding due to waiting too long to void, she feels from ignoring signals to void. Physical Therapy Plan Frequency and Duration Frequency of Treatment 1x/Week Duration of treatment (weeks) 12 Plan of Care Start Date 05/13/24 Plan of Care End Date 08/05/24 Next Visit Focus/Plan Next Note Type Treatment Note Next Visit Plan Next: Reissue urge deference technique and assess response to use (% able to walk to BR in time). Review bladder diary and discuss fluid intake (AM/PM) norms and check norms for voiding and times between voids (if as discussed). Educate in core pressure mgmt w/transfers, ADLs, body mechanics. Neuro re-ed, isolating Kegel from gluts. Assess response to urge deference techique. Vemg neuro gabe training. Educate: in proper sit/stand posture. Exer: Deep Breathing, Reverse Kegel f/b Kegel. Able to demonstrate TA tightening Expect 8 week program, but due to holidays and possible difficulty with scheduling, POC is 12 wks.
--- NOTE | 2024-06-30 12:10 | PT-OP ANOTE ---
Per phone, pt called to cancel today's appt due to illness, considering going into ER. States she has only canceled this one appt, others were canceled by PT dept due to room not available. Wasn't aware that other appt in Jun were canceled. Discussed cancel policy, pt wanting to continue therapy; therefore pt referred to mgr to discuss decision of pt continuing therapy or if new referral needed to return to therapy.
--- NOTE | 2024-10-25 18:51 | PT.OPDS ---
Current Diagnoses Stiffness of unspecified hip, not elsewhere classified (06/07/24) Low back pain, unspecified (06/07/24) Muscle weakness (generalized) (06/07/24) Unspecified urinary incontinence (06/07/24) Visit Care Team Role Provider Type Katie Zepeda MD Family Provider Physician Primary Care Provider Specialty: Family Practice DESK PEN SET ASSEMBLER Address: [address] [place] [id number] Email: [email or web address] Patricia Gonzalez MD Attending Provider Physician Referring Provider Specialty: Gynecology DESK PEN SET ASSEMBLER Obstetrics Address: [address] [place] [address], [id number] Email: [email or web address] Visit Number Visit Number 2 Discharge Summary PT-OP-B Current Condition Start: 04/30/24 13:03 Freq: Status: Active Protocol: Document 05/13/24 13:01 LRN (Rec: 05/13/24 13:51 LRN [id number]) Current Condition History of Current Condition Onset Date 3 yrs ago Current Complaints Leakage squatting, bending, getting up from recliner, cough, sneeze. History of Current Condition Pt reports she had a miscarriage 02/2020 and didn't stop bleeding until 09/2023, then had a break from bleeding after a D&C (06/2023). A hysterectomy (hyste) on 09/2023 stopping the bleeding. With all the bleeding and inflammation she feels her pelvic floor (PF) weakened. After her hyste the urinary leakage has gotten worse, but she thinks it may not be true because with wearing a pad she can't tell how much her urinary leakage is. She has urinary leakage most noticeably with bending down to pick something up or getting up from recliner chair , and with coughing/sneezing. She reports leakage rushing to bathroom to urinate ( happens daily) and feels it is worse because of her ADHD, doesn't feel urgency. She feels her core is also weak, and during her prior physical therapy rehab for her R shoulder the core work seemed to help with her leakage a little. She is trying to start returning to [facility] lifting , and walking, stretching yoga . Reported PMH: Had endometriosis, PCOS, since 2016, and new dx 2023 of adenomyosis. Prior Treatments and Tests PT for R shoulder/Rhomboid region. 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 No children. Treatment Goals Patient/Caregiver Goals Pt goals: -Eliminate leakage with bending down to pick something up or getting up from recliner chair, and with coughing/sneezing will have urinaryleakage. -learning when to urinate to not robison to bathroom to urinate (happens daily), worse because of ADHD, doesn't feel urgency. -core strengthening. -Consistent with a HEP. 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 Pt reported: Endometriosis, PCOS, since 2016, New dx in 2023 of adenomyosis, ADHD hindering her awareness of urinary urge. R posterior shoulder and LBP rated 3-4/10. PT-OP-C Subjective Start: 04/30/24 13:03 Freq: Status: Active Protocol: Document 06/07/24 08:17 LRN (Rec: 06/07/24 10:13 LRN [id number]) OP-PT Subjective Patient Comments Patient Comments Has noticed she has urgency due to waiting too long. Feels like she doesn't get the cue to go or she doesn't notice it until urgent. Has been trying the urge technique , but hasn't noticed it helping. States last week her in-law was around and did a lot of 6 mile hikes (4-5 hrs) and held urine until home. Her service dog is helping to cue her to take breaks for work so she can urinate. Used the wand the wand for stretching and found it hard to do and was uncomfortable. [place] burning, same areas as with intercourse. Pain in missionary position is least painful on insertion. In other positions has pain also with thrust. PT-OP-I Pelvic Floor Start: 04/30/24 13:03 Freq: Status: Active Protocol: Document 05/13/24 13:01 LRN (Rec: 05/13/24 13:51 LRN [id number]) Pelvic Floor Assessment Urine Leakage Cause Cough,Lifting,Sneeze,Urge Leaks Per Day 0-3 Voiding Frequency 3 Nocturia 0 Pads Used In 24 Hours 0 Bowel Bowel Movement Frequency 1 [place] Stool Chart Comments Type 4, 5 Pelvic Clock Pelvic Clock 12-3 Tenderness,Tightness Pelvic Clock 3-6 Tenderness,Tightness Pelvic Clock 6-9 Tenderness Pelvic Clock 9-12 Tenderness Prolapse Cystocele Grade 2 Perineal Descent Resting Present Bearing Present Contraction Ability Manual Muscle Testing Left 2 Manual Muscle Testing Right 3 Manual Muscle Testing Anterior 3 Manual Muscle Testing Posterior 2 Muscle Endurance (Seconds) 2 Number of Quick Contractions In 10 10 Seconds PT-OP-J Posture/Palpation/Skin Start: 04/30/24 13:03 Freq: Status: Active Protocol: Document 05/13/24 13:01 LRN (Rec: 05/13/24 13:51 LRN [id number]) Posture Evaluation Position Standing L-Spine Posture Increased Lordosis Shoulder Posture (L) Elevated Knee Posture (L) Genu Valgus,(R) Genu Valgus Ankle/Foot Posture (L) Calcaneal Eversion,(R) Calcaneal Eversion Comments Posture Comments Dowager's hump, decreased T/S curve. PT-OP-K Range of Motion Start: 04/30/24 13:03 Freq: Status: Active Protocol: Document 05/13/24 13:01 LRN (Rec: 05/13/24 13:51 LRN [id number]) Lumbar Spine Range of Motion Lumbar Spine Active Degrees Testing Position Standing Flexion 90 Extension 25 Rotation Left 25 Rotation Right 10 Lateral Flexion Left 24 Lateral Flexion Right 12 Hip Goniometric Range of Motion Hip Right Passive Internal Rotation 20 External Rotation 70 Left Passive Testing Position Supine Internal Rotation 20 External Rotation 70 PT-OP-M Strength Start: 04/30/24 13:03 Freq: Status: Active Protocol: Document 05/13/24 13:01 LRN (Rec: 05/13/24 13:51 LRN [id number]) Trunk Strength Trunk Manual Muscle Testing Core Stabilization Pt not able to maintain neutral position with MMT of LE's due to rotational weakness. Poor visible TA tightening. Hip Strength Hip Manual Muscle Testing Right Extension (S1) 3 Fair External Rotation 3 Fair Comments Strength is 5/5 except as indicated above. Left Extension (S1) 3 Fair External Rotation 3 Fair Comments Strength is 5/5 except as indicated above. PT-OP-T Assessment and Plan Start: 04/30/24 13:03 Freq: Status: Active Protocol: Document 10/25/24 18:46 LRN (Rec: 10/25/24 18:51 LRN Laptop) Physical Therapy Assessment Goals Four Impairment Urge urinary incontinence daily rushing to bathroom Short Term Goal (STG) Pt will be educated in bladder retraining for urge deference and will improve awareness of the urge to urinate in order to calmly walk to the bathroom 75% of the time. 06/07/24: Pt educated in bladder retraining with urge technique. STG Duration 06/24/24 progressed 06/07/24 K 12 School Principal Goal (LTG) Pt will be able to delay urination to decrease urinary leakage 90-100% of the time LTG Duration 08/05/24 Three Impairment Stress urinary leakage:bending over/squat,recliner chair> stand,cough,sneeze Short Term Goal (STG) Decrease PF pain and improve PF tissue tightness and weakness, with pt able to cough or sneeze without urinary leakage. STG Duration 06/24/24 Fdc Goal (LTG) Eliminate leakage with bending down to pick something up or getting up from recliner chair . LTG Duration 08/05/24 Two Impairment Decreased core strength/ stability Short Term Goal (STG) Pt will be educated in proper sit/stand posture and able to demonstrate TA tightening, to work towards decreasing lumbar lordosis. STG Duration 06/24/24 K 12 School Principal Goal (LTG) Improve core strength with pt able to maintain core stability with mvmt and MMT of LE's. LTG Duration 08/05/24 One Impairment Pt lacks an independent self care HEP Short Term Goal (STG) Pt will be able to demonstrate transfers to lessen core abdominal pressure, and proper deep breathing technique to be able to downtrain her system with a strong urge. STG Duration 06/24/24 K 12 School Principal Goal (LTG) Pt will be independent in a self care HEP of PF care of stretches, PF relaxation technique and PF strengthening (when pt can relax her PF), Hip IR stretch, strengthening (hip ext/ER, trunk flex, rot, TA,). LTG Duration 08/05/24 Assessment Summary Assessment Pt was seen for an intial evaluation 05/13/24 and 1 treatment visit. The pt canceled her next appt due to illness and because of scheduling difficulties pt was not able to be seen. Pt needed to speak to PT commercial lines account manager to resume PT, but not further appts were scheduled. The pt did want to continue therapy ana luisa last contacted on 06/30/24. The pt is being discharged from therapy due no longer attending therapy. Physical Therapy Plan Discharge Physical Therapy Discharge Reasons No Longer Attending PT Discharge Comments Thank you for your referral, I would be more than happy to work with this pleasant individual again. A new referral would be needed.
== END 2024-10-27 09:52 | disposition home or self-care (01) ==
LOC: PHYS 08:15
PROVIDERS: Family Provider Family Medicine; PCP Family Medicine; Referring Provider Obstetrics & Gynecology; Visit Provider Obstetrics & Gynecology
DX: R32 Unspecified urinary incontinence (principal); M54.50 Low back pain, unspecified; M62.81 Muscle weakness (generalized); M25.659 Stiffness of unspecified hip, not elsewhere classified
CPT/HCPCS: 97112; 97140; 97162; 97535

== ENCOUNTER → 2024-07-13 07:57 | Outpatient (CLI) | payer OTHER, SELFPAY ==
[2024-03-17 17:42] VITALS: BMI 49.4
--- NOTE | 2024-07-13 | DI.NM.S_ITS ---
PROCEDURE: NM EXERCISE TREADMILL NON NUC COMPARISON: None. INDICATIONS: SYNCOPE AND COLLAPSE FINDINGS: The patient exercised for 7 minutes and 0 seconds, reaching 79% of maximum predicted heart rate Appropriate BP response to exercise. No angina, no diagnostic ST changes, and no ectopy during exercise or recovery. IMPRESSION: Low risk, submaximal non-nuclear stress test. Only 79% of maximum predicted heart rate reached. Reduced exercise tolerance (10.1METs, NIKKI +28%). Dictated by: Leonor Rosario MD on 07/13/2024 at 13:38 Approved by: Leonor Rosario MD on 07/13/2024 at 13:41
== END ==
PROVIDERS: Family Provider Family Medicine; PCP Family Medicine; Referring Provider Internal Medicine Cardiovascular Disease; Visit Provider Internal Medicine Cardiovascular Disease
DX: R55 Syncope and collapse (principal); R07.89 Other chest pain
CPT/HCPCS: 93017